=== PATIENT | female | born 1950 | race Caucasian/White ===

== ENCOUNTER 2024-06-18 03:50 | Emergency (ER) | payer MEDICARE, SELFPAY ==
[2024-06-18] VITALS (9 sets, daily range): BP systolic 124–160; BP diastolic 61–70; PULSE 80–99; RESP 16; TEMP 36.4; O2SAT 93–98; BMI 26.6
--- NOTE | 2024-06-18 04:00 | XRR_ITS ---
PROCEDURE INFORMATION: Exam: XR Right Knee Exam date and time: 06/18/2024 4:10 AM Age: 73 years old Clinical indication: Injury or trauma; Fall; Blunt trauma; Knee; Right; Additional info: Fall pain TECHNIQUE: Imaging protocol: Radiologic exam of the right knee. Views: 3 views. COMPARISON: No relevant prior studies available. FINDINGS: Bones/joints: No definite fracture or dislocation is appreciated. There is mild joint space narrowing involving the lateral and patellofemoral compartments. There are small lateral compartment, patellar and tibial spine osteophytes. Bony mineralization is decreased. There is a hyperdense joint effusion suggesting the possibility of a hemarthrosis. Soft tissues: Normal. XR/XR knee RT 3V* [id number] IMPRESSION: 1. No definite fracture identified. However, there does appear to be a hyperdense joint effusion suggesting the presence of a hemarthrosis. This would raise the possibility for an occult fracture. Recommend clinical correlation. Cross-sectional imaging with CT may add additional information. 2. Gnof-dd-[id number] osteoarthritis.
--- NOTE | 2024-06-18 04:06 | W.ED.FALL ---
Documented by User: Augustin Richmond DO 06/18/24 18:43 HPI - Fall General: Chief Complaint: Fall Stated Complaint: FALL Time Seen by Provider: 06/18/24 03:59 History of Present Illness: Patient presents to the ER via EMS from home complains of right knee pain, increased fall starting today. Patient was nauseous on the way here they gave her 4 mg Zofran 5 mg Compazine. Patient lives at home with her . Patient has a doctor's appointment next week with Dr. Bell for spinal stenosis. Patient says she normally walks with assistance or with a cane but now says she cannot even stand up starting today. Related Data Home Medications Medication Instructions Recorded Confirmed polymyxin B sulfate 10,000 1 drp ophthalmic (eye) Q6H 06/18/24 06/18/24 unit-trimethoprim 1 mg/mL eye drops Previous Rx's Medication Instructions Recorded cefdinir 300 mg capsule 300 mg PO BID #14 caps 06/18/24 hydrocodone 5 mg-acetaminophen 325 1 tab PO Q6H PRN pain #20 tabs 06/18/24 mg tablet Allergies Allergy/AdvReac Type Severity Reaction Status Date / Time No Known Allergies Allergy Verified 06/18/24 03:59 Review of Systems General: Reports: 10 or more systems reviewed and unremarkable except in HPI and below Physical Exam Const: COMMON NORMALS: no acute distress, average body habitus, patient oriented x3, no limitations, healthy appearing, alert and well nourished HENMT: COMMON NORMALS: normocephalic, atraumatic, hearing grossly normal bilaterally, external ears normal, Normal external nose present and moist oral mucous membranes HEAD & SCALP: normocephalic and atraumatic NOSE: Normal external nose present EXTERNAL EAR: Yes external ears normal Neck/C-Spine: COMMON NORMALS: full ROM, no lymphadenopathy, supple, no meningeal signs, no JVD and Thyroid normal THYROID: Thyroid normal Chest: COMMONS NORMALS: normal inspection of the chest and normal palpation of entire chest wall Resp: COMMON NORMALS: normal respiratory effort, No retractions, No use of accessory muscles and clear to auscultation bilaterally AUSCULTATION: clear to auscultation bilaterally Cardio: COMMON NORMALS: no JVD, regular rate, regular rhythm, S1 normal heart sound present, S2 normal heart sound present, No gallops present (Cardio), No clicks present (Cardio), No murmurs present (Cardio) and No rub (Cardio) RATE: regular rate RHYTHM: regular rhythm HEART SOUNDS: S1 normal heart sound present and S2 normal heart sound present GI: COMMON NORMALS: Normal to inspection, nondistended, normoactive bowel sounds present, Soft to palpation, non-tender, No hepatosplenomegaly present and no masses PALPATION: Yes Soft to palpation and Yes No hepatosplenomegaly present Extremity: NARRATIVE EXTREMITY EXAM: Right knee minimal tenderness to palpation no obvious crepitus deformity. Mild decreased range of motion secondary to pain Neuro: COMMON NORMALS: patient oriented x3 SENSORIUM/ORIENTATION: Yes alert MENINGEAL SIGNS: Yes no meningeal signs Course Vital Signs: Vital signs: Vital Signs Temperature 97.5 F L 06/18/24 03:56 Pulse Rate 82 06/18/24 12:20 Respiratory Rate 16 06/18/24 03:56 Blood Pressure 124/61 06/18/24 12:20 Pulse Oximetry 98 06/18/24 12:20 Oxygen Delivery Me thod Room Air 06/18/24 08:02 MDM - Fall Medical Decision Making Care transferred over to Dr. Harden at shift change Medical Records I reviewed the patient's medical records. Lab Data I reviewed the patient's lab results. 06/18/24 09:41 06/18/24 09:41 Radiology Impressions Knee X-Ray 06/18/24 04:00 IMPRESSION: 1. No definite fracture identified. However, there does appear to be a hyperdense joint effusion suggesting the presence of a hemarthrosis. This would raise the possibility for an occult fracture. Recommend clinical correlation. Cross-sectional imaging with CT may add additional information. 2. Uopr-dh-bhzwwqlm osteoarthritis. Knee CT 06/18/24 08:26 IMPRESSION: 1. Tiny nondisplaced fracture involving the lateral aspect of the patella extending to the lateral patellar facet. 2. No other visualized fractures. 3. Osteopenia 4. Moderate suprapatellar effusion. Lumbar Spine CT 06/18/24 08:36 IMPRESSION: 1. No acute fractures. 2. Moderate central canal stenosis L3-4 and severe central canal stenosis L4-5 described above. 3. Moderate to severe L3-4 and severe bilateral L4-5 foraminal narrowing. 4. Grade 1 anterolisthesis L4 on L5 with advanced facet arthropathy. 5. Dense cholelithiasis. Laboratory Results WBC 14.16 10^3/uL (3.29-11.43) H 06/18/24 09:41 RBC 4.37 10^6/uL (3.85-5.65) 06/18/24 09:41 Hgb 13.20 g/dL (11.27-16.99) 06/18/24 09:41 Hct 40.7 % (36-47) 06/18/24 09:41 MCV 93.1 fl (85-98) 06/18/24 09:41 MCH 30.2 pg (27-33) 06/18/24 09:41 MCHC 32.4 g/dL (30-55) 06/18/24 09:41 RDW 13.2 % (12.1-15.1) 06/18/24 09:41 Plt Count 333 10^3/cmm (157-399) 06/18/24 09:41 MPV 8.5 fL (7.4-10.4) 06/18/24 09:41 Neut % (Auto) 79.5 % 06/18/24 09:41 Lymph % (Auto) 12.5 % 06/18/24 09:41 Trimble % (Auto) 7.3 % 06/18/24 09:41 Eos % (Auto) 0.1 % 06/18/24 09:41 Baso % (Auto) 0.2 % 06/18/24 09:41 Neut # (Auto) 11.26 10^3/uL (1.8-7.7) H 06/18/24 09:41 Lymph # (Auto) 1.8 10^3/uL (0.8-4.8) 06/18/24 09:41 Trimble # (Auto) 1.0 10^3/uL (0.2-0.9) H 06/18/24 09:41 Eos # (Auto) 0.0 10^3/uL (0.0-0.8) 06/18/24 09:41 Baso # (Auto) 0.0 10^3/uL (0.0-0.1) 06/18/24 09:41 Nucleated RBC % (auto) 0 % 06/18/24 09:41 Nucleated RBCs # 0.0 /100WBC 06/18/24 09:41 Sodium 135 mmol/L (136-145) L 06/18/24 09:41 Potassium 3.7 mmol/L (3.5-5.1) 06/18/24 09:41 Chloride 99 mmol/L (98-107) 06/18/24 09:41 Carbon Dioxide 25 mmol/L (22-29) 06/18/24 09:41 Anion Gap 14.7 (5-19) 06/18/24 09:41 BUN 7 mg/dL (8-23) L 06/18/24 09:41 Creatinine 0.4 mg/dL (0.5-0.9) L 06/18/24 09:41 GFR Calculation Not Reportable 06/18/24 09:41 Glucose 97 mg/dL (65-115) 06/18/24 09:41 Calculated Osmolality 278 mOsm/kg (285-295) L 06/18/24 09:41 Calcium 8.9 mg/dL (8.5-10.5) 06/18/24 09:41 Total Bilirubin 0.7 mg/dL (0.15-1.2) 06/18/24 09:41 AST 20 U/L (0-32) 06/18/24 09:41 ALT 12 U/L (0-33) 06/18/24 09:41 Alkaline Phosphatase 63 U/L (35-105) 06/18/24 09:41 Total Protein 6.8 g/dL (6.6-8.7) 06/18/24 09:41 Albumin 4.0 g/dL (3.5-5.2) 06/18/24 09:41 Globulin 2.8 g/dL (1.3-4.6) 06/18/24 09:41 Urine Color Spalding (Yellow) A 06/18/24 10:08 Urine Appearance Clear (CLEAR) 06/18/24 10:08 Urine pH 5.5 (5-7) 06/18/24 10:08 Ur Specific Driscoll 1.014 (1.005-1.030) 06/18/24 10:08 Urine Protein Negative (Negative) 06/18/24 10:08 Urine Glucose (UA) Negative (Normal) 06/18/24 10:08 Urine Ketones 3+ (Negative) H 06/18/24 10:08 Urine Blood Negative (Negative) 06/18/24 10:08 Urine Nitrate Negative (Negative) 06/18/24 10:08 Urine Bilirubin Negative (Negative) 06/18/24 10:08 Urine Urobilinogen 1.0 mg/dL (Negative) 06/18/24 10:08 Ur Leukocyte Esterase 2+ (Negative) A 06/18/24 10:08 Urine RBC 3-5 /hpf (0-2) 06/18/24 10:08 Urine WBC 21-50 /hpf (0-5) H 06/18/24 10:08 Ur Squamous Epith Cells 0-5 /hpf (0-5) 06/18/24 10:08 Amorphous Sediment Not Reportable 06/18/24 10:08 Urine Bacteria None seen /hpf (NONE) 06/18/24 10:08 Hyaline Casts 0.40 /lpf 06/18/24 10:08 All radiology interpretation(s) finalized by discharge Discharge Plan Discharge Patient Disposition: Home Clinical Impression: Lumbar radiculopathy, Cystitis, Patella fracture Condition: Stable Prescriptions: New cefdinir 300 mg capsule 300 mg PO BID Qty: 14 0RF hydrocodone-acetaminophen 5-325 mg tablet 1 tab PO Q6H PRN (Reason: pain) Qty: 20 0RF No Action polymyxin B sulf-trimethoprim 10,000 unit- 1 mg/mL drops 1 drp ophthalmic (eye) Q6H Discharge Orders: Discharge ED (Routine); Ordered 06/18/24 Ordered By: Kristian Harden Other Ambulatory Orders: DME: Walker (Order) Location: None Selected Ordered By: Kristian Harden Referrals: Caprice Monreal FNP-C [Primary Care Provider] - Discharge Diet: Usual diet Discharge Activity: Resume usual activity Patient Instructions: Opioid Safety, Pain Management Activity Restrictions/Additional Instructions: Thank you for choosing [facility] [place] for your healthcare needs today. It is very important that you follow up as instructed or that you return to the Emergency Department should you have concerns or if your condition changes or worsens in any way. You are seen in the emergency room after a fall. You do have a small avulsion fracture that is nondisplaced on the right patella recommend that you wear a knee immobilizer for this she can be partial weightbearing with a walker. On exam your function your lower extremities was normal. There is no sign of cauda equina syndrome. There is sign of chronic back issues on your CT of your lumbar spine. I discussed your CT with the radiologist as well as Dr. Bell who is on-call for orthopedic spine surgery. Dr. Bell recommended outpatient MRI and follow-up with him in the office. Case management is working on scheduling an outpatient MRI in the morning. Dr. Bell will see you the following day. Sign Out Sign Out Data: Patient Sign Out occurred on 06/18/24 at 06:42. Patient's care was discussed, and care was transferred from Augustin Richmond DO to Kristian Harden DO. Coding Level of Care Code ED Investor Relations Analyst for [employer] Documented by User: Kristian Harden DO 06/20/24 09:29 HPI - Fall General: Chief Complaint: Fall Stated Complaint: FALL Time Seen by Provider: 06/18/24 03:59 Related Data Home Medications Medication Instructions Recorded Confirmed polymyxin B sulfate 10,000 1 drp ophthalmic (eye) Q6H 06/18/24 06/18/24 unit-trimethoprim 1 mg/mL eye drops Previous Rx's Medication Instructions Recorded cefdinir 300 mg capsule 300 mg PO BID #14 caps 06/18/24 hydrocodone 5 mg-acetaminophen 325 1 tab PO Q6H PRN pain #20 tabs 06/18/24 mg tablet Allergies Allergy/AdvReac Type Severity Reaction Status Date / Time No Known Allergies Allergy Verified 06/18/24 03:59 Course Vital Signs: Vital signs: Vital Signs Temperature 97.5 F L 06/18/24 03:56 Pulse Rate 82 06/18/24 12:20 Respiratory Rate 16 06/18/24 03:56 Blood Pressure 124/61 06/18/24 12:20 Pulse Oximetry 98 06/18/24 12:20 Oxygen Delivery Me thod Room Air 06/18/24 08:02 MDM - Fall Medical Decision Making Care transferred over to Dr. Harden at shift change Care assumed at change of shift. Patient does have a small avulsion fracture patella this is fairly minor its nondisplaced. It will cause some discomfort and I think is causing the swelling discomfort she is having at the level of her knee. She also complaining of difficulty with leg pain. 20 years ago she had an MRI and was advised she had some spinal canal stenosis and foraminal stenosis she has not had any recent advanced imaging she has an appointment coming up with Dr. Bell lumbar spine CT done reviewed with radiology also discussed with Dr. Bell. He does not feel and neither did radiology that an emergent MRI was required at this time. Patient is having no fecal incontinence and no urinary retention. We were able to ambulate her successfully with a walker. We are making arrangements for case management for a MRI in the morning first thing and then follow-up with Dr. Bell the following day. Incidental finding of a cystitis. She has a mild elevation of her white count but no signs of a pyelonephritis we will start her on cefdinir for now. She has not been running a fever either. Lab Data 06/18/24 09:41 06/18/24 09:41 Radiology Impressions Knee X-Ray 06/18/24 04:00 IMPRESSION: 1. No definite fracture identified. However, there does appear to be a hyperdense joint effusion suggesting the presence of a hemarthrosis. This would raise the possibility for an occult fracture. Recommend clinical correlation. Cross-sectional imaging with CT may add additional information. 2. Seac-oo-okimvvhf osteoarthritis. Knee CT 06/18/24 08:26 IMPRESSION: 1. Tiny nondisplaced fracture involving the lateral aspect of the patella extending to the lateral patellar facet. 2. No other visualized fractures. 3. Osteopenia 4. Moderate suprapatellar effusion. Lumbar Spine CT 06/18/24 08:36 IMPRESSION: 1. No acute fractures. 2. Moderate central canal stenosis L3-4 and severe central canal stenosis L4-5 described above. 3. Moderate to severe L3-4 and severe bilateral L4-5 foraminal narrowing. 4. Grade 1 anterolisthesis L4 on L5 with advanced facet arthropathy. 5. Dense cholelithiasis. Laboratory Results WBC 14.16 10^3/uL (3.29-11.43) H 06/18/24 09:41 RBC 4.37 10^6/uL (3.85-5.65) 06/18/24 09:41 Hgb 13.20 g/dL (11.27-16.99) 06/18/24 09:41 Hct 40.7 % (36-47) 06/18/24 09:41 MCV 93.1 fl (85-98) 06/18/24 09:41 MCH 30.2 pg (27-33) 06/18/24 09:41 MCHC 32.4 g/dL (30-55) 06/18/24 09:41 RDW 13.2 % (12.1-15.1) 06/18/24 09:41 Plt Count 333 10^3/cmm (157-399) 06/18/24 09:41 MPV 8.5 fL (7.4-10.4) 06/18/24 09:41 Neut % (Auto) 79.5 % 06/18/24 09:41 Lymph % (Auto) 12.5 % 06/18/24 09:41 Trimble % (Auto) 7.3 % 06/18/24 09:41 Eos % (Auto) 0.1 % 06/18/24 09:41 Baso % (Auto) 0.2 % 06/18/24 09:41 Neut # (Auto) 11.26 10^3/uL (1.8-7.7) H 06/18/24 09:41 Lymph # (Auto) 1.8 10^3/uL (0.8-4.8) 06/18/24 09:41 Trimble # (Auto) 1.0 10^3/uL (0.2-0.9) H 06/18/24 09:41 Eos # (Auto) 0.0 10^3/uL (0.0-0.8) 06/18/24 09:41 Baso # (Auto) 0.0 10^3/uL (0.0-0.1) 06/18/24 09:41 Nucleated RBC % (auto) 0 % 06/18/24 09:41 Nucleated RBCs # 0.0 /100WBC 06/18/24 09:41 Sodium 135 mmol/L (136-145) L 06/18/24 09:41 Potassium 3.7 mmol/L (3.5-5.1) 06/18/24 09:41 Chloride 99 mmol/L (98-107) 06/18/24 09:41 Carbon Dioxide 25 mmol/L (22-29) 06/18/24 09:41 Anion Gap 14.7 (5-19) 06/18/24 09:41 BUN 7 mg/dL (8-23) L 06/18/24 09:41 Creatinine 0.4 mg/dL (0.5-0.9) L 06/18/24 09:41 GFR Calculation Not Reportable 06/18/24 09:41 Glucose 97 mg/dL (65-115) 06/18/24 09:41 Calculated Osmolality 278 mOsm/kg (285-295) L 06/18/24 09:41 Calcium 8.9 mg/dL (8.5-10.5) 06/18/24 09:41 Total Bilirubin 0.7 mg/dL (0.15-1.2) 06/18/24 09:41 AST 20 U/L (0-32) 06/18/24 09:41 ALT 12 U/L (0-33) 06/18/24 09:41 Alkaline Phosphatase 63 U/L (35-105) 06/18/24 09:41 Total Protein 6.8 g/dL (6.6-8.7) 06/18/24 09:41 Albumin 4.0 g/dL (3.5-5.2) 06/18/24 09:41 Globulin 2.8 g/dL (1.3-4.6) 06/18/24 09:41 Urine Color Spalding (Yellow) A 06/18/24 10:08 Urine Appearance Clear (CLEAR) 06/18/24 10:08 Urine pH 5.5 (5-7) 06/18/24 10:08 Ur Specific Driscoll 1.014 (1.005-1.030) 06/18/24 10:08 Urine Protein Negative (Negative) 06/18/24 10:08 Urine Glucose (UA) Negative (Normal) 06/18/24 10:08 Urine Ketones 3+ (Negative) H 06/18/24 10:08 Urine Blood Negative (Negative) 06/18/24 10:08 Urine Nitrate Negative (Negative) 06/18/24 10:08 Urine Bilirubin Negative (Negative) 06/18/24 10:08 Urine Urobilinogen 1.0 mg/dL (Negative) 06/18/24 10:08 Ur Leukocyte Esterase 2+ (Negative) A 06/18/24 10:08 Urine RBC 3-5 /hpf (0-2) 06/18/24 10:08 Urine WBC 21-50 /hpf (0-5) H 06/18/24 10:08 Ur Squamous Epith Cells 0-5 /hpf (0-5) 06/18/24 10:08 Amorphous Sediment Not Reportable 06/18/24 10:08 Urine Bacteria None seen /hpf (NONE) 06/18/24 10:08 Hyaline Casts 0.40 /lpf 06/18/24 10:08 Discharge Plan Discharge Patient Disposition: Home Clinical Impression: Lumbar radiculopathy, Cystitis, Patella fracture Condition: Stable Prescriptions: New cefdinir 300 mg capsule 300 mg PO BID Qty: 14 0RF hydrocodone-acetaminophen 5-325 mg tablet 1 tab PO Q6H PRN (Reason: pain) Qty: 20 0RF No Action polymyxin B sulf-trimethoprim 10,000 unit- 1 mg/mL drops 1 drp ophthalmic (eye) Q6H Discharge Orders: Discharge ED (Routine); Ordered 06/18/24 Ordered By: Kristian Harden Other Ambulatory Orders: DME: Walker (Order) Location: None Selected Ordered By: Kristian Harden Referrals: Caprice Monreal FNP-C [Primary Care Provider] - Discharge Diet: Usual diet Discharge Activity: Resume usual activity Patient Instructions: Opioid Safety, Pain Management Activity Restrictions/Additional Instructions: Thank you for choosing [facility] [place] for your healthcare needs today. It is very important that you follow up as instructed or that you return to the Emergency Department should you have concerns or if your condition changes or worsens in any way. You are seen in the emergency room after a fall. You do have a small avulsion fracture that is nondisplaced on the right patella recommend that you wear a knee immobilizer for this she can be partial weightbearing with a walker. On exam your function your lower extremities was normal. There is no sign of cauda equina syndrome. There is sign of chronic back issues on your CT of your lumbar spine. I discussed your CT with the radiologist as well as Dr. Bell who is on-call for orthopedic spine surgery. Dr. Bell recommended outpatient MRI and follow-up with him in the office. Case management is working on scheduling an outpatient MRI in the morning. Dr. Bell will see you the following day. Sign Out Sign Out Data: Patient Sign Out occurred on 06/18/24 at 06:42. Patient's care was discussed, and care was transferred from Augustin Richmond DO to Kristian Harden DO. Coding Level of Care Code ED Investor Relations Analyst for [employer]
--- NOTE | 2024-06-18 07:22 | PC.PHAR ---
Pt takes no maintenance medications. Current therapy of eye drop Polymyxin B/Trimethoprim filled 06/11/24 for 7 to 10 days
--- NOTE | 2024-06-18 08:26 | CT_ITS ---
WS: [id number] Noncontrast CT RIGHT knee TECHNIQUE: Noncontrast CT RIGHT knee with coronal and sagittal reformatted images. CLINICAL INFORMATION: r knee pain , unable to stand, trauma DLP: 337.[address] scans at [facility] use at least one of these dose optimization techniques: automated e xposure control; mA and/or kV adjustment per patient size (includes targeted exams where dose is matc hed to clinical indication); or iterative reconstruction. FINDINGS: Osteopenia. Osteopenia somewhat limits sensitivity for fracture detection. Moderate tricompartmental arthritis. Vascular calcification. Hypertrophic changes along the joint line. Moderate suprapatellar effusion. Soft tissue edema. Tiny nondisplaced hairline fracture involving the lateral aspect of the patella. Femoral condyles are normal in appearance. Tibial plateau appears intact. Normal fibula head. CT/CT knee RT wo con* [id number] IMPRESSION: 1. Tiny nondisplaced fracture involving the lateral aspect of the patella exte nding to the lateral patellar facet. 2. No other visualized fractures. 3. Osteopenia 4. Moderate suprapatellar effusion.
--- NOTE | 2024-06-18 08:36 | CT_ITS ---
WS: [id number] CT LUMBAR SPINE TECHNIQUE: Noncontrast CT of the lumbar spine with coronal and sagittal reformatted images. CLINICAL INFORMATION: back pain/fall COMPARISON: None. DLP: 815.[address] scans at [facility] use at least one of these dose optimization techniques: automated e xposure control; mA and/or kV adjustment per patient size (includes targeted exams where dose is matc hed to clinical indication); or iterative reconstruction. FINDINGS: Mild lumbar curve. Grade 1 anterolisthesis L4 on L5. Disc space narrowing worse at L2-L3 and L3-L4. L liat bases are well aerated. Dense cholelithiasis. Adrenal glands are normal. Splenic artery calcifica tions. L1-L2: Mild disc bulging. Small central protrusion. Mild central canal stenosis. Mild foraminal narro wing. Mild facet arthropathy. L2-L3: Moderate central canal stenosis with a shallow central protrusion. Moderate facet arthropathy. Moderate bilateral foraminal narrowing. L3-L4: Severe central canal stenosis due to disc bulge and facet arthropathy with ligamentum flavum h ypertrophy. Moderate to severe bilateral foraminal narrowing. L4-L5: Grade 1 anterolisthesis. Severe central canal stenosis. Advanced facet arthropathy with ligame ntum flavum hypertrophy. Severe bilateral foraminal narrowing. L5-S1: Mild disc bulging. Moderate RIGHT and mild LEFT foraminal narrowing. Moderate to advanced face t arthropathy. CT/CT lumbar spine wo con* [id number] IMPRESSION: 1. No acute fractures. 2. Moderate central canal stenosis L3-4 and severe central canal stenosis L4-5 described above. 3. Moderate to severe L3-4 and severe bilateral L4-5 foraminal narrowing. 4. Grade 1 anterolisthesis L4 on L5 with advanced facet arthropathy. 5. Dense cholelithiasis.
[2024-06-18 09:52] LABS: Basophils % 0.2 %; Eosinophils % 0.1 %; Hematocrit 40.7 % (36-47); Lymphocytes # 1.8 10^3/uL (0.8-4.8); Lymphocytes % 12.5 %; Mean Corpuscular HGB Conc 32.4 g/dL (30-55); Mean Corpuscular Hemoglobin 30.2 pg (27-33); Mean Corpuscular Volume 93.1 fl (85-98); Mean Platelet Volume 8.5 fL (7.4-10.4); Monocytes % 7.3 %; Neutrophils # 11.26 10^3/uL (1.8-7.7); Neutrophils % 79.5 %; Nucleated Red Blood Cells % 0 %; Platelet Count 333 10^3/cmm (157-399); Red Blood Count 4.37 10^6/uL (3.85-5.65); Red Cell Distribution Width 13.2 % (12.1-15.1); White Blood Count 14.16 10^3/uL (3.29-11.43)
[2024-06-18 10:15] LABS: Alanine Aminotransferase 12 U/L (0-33); Alkaline Phosphatase 63 U/L (35-105); Anion Gap 14.7 (5-19); Aspartate Amino Transferase 20 U/L (0-32); Blood Urea Nitrogen 7 mg/dL (8-23); Calcium 8.9 mg/dL (8.5-10.5); Carbon Dioxide 25 mmol/L (22-29); Chloride 99 mmol/L (98-107); Creatinine Clr Calc Pharmacy 66.0387; Globulin 2.8 g/dL (1.3-4.6); Glucose 97 mg/dL (65-115); Osmolality Calculated 278 mOsm/kg (285-295); Potassium 3.7 mmol/L (3.5-5.1); Sodium 135 mmol/L (136-145); Total Bilirubin 0.7 mg/dL (0.15-1.2); Total Protein 6.8 g/dL (6.6-8.7)
[2024-06-18] MEDS: ondansetron 2 mg/ML SDV 2 mL 4 MG IVP (10:23)
[2024-06-18] MEDS: dexamethasone 10 mg/mL INJ IM (10:24)
[2024-06-18] MEDS: morphine 4 mg/mL SDV 1 mL IVP (10:26)
[2024-06-18] MEDS: ketorolac 30 mg/mL INJ IVP (10:26)
[2024-06-18 10:37] LABS: Bacteria Urine None Seen /hpf; Squamous Epithelial Cell Urine 0-5 /hpf (0-5); WBC Urine 21-50 /hpf (0-5)
[2024-06-18 10:41] LABS: Add Urine Microscopic? YES; Bilirubin Urine Negative (Negative); Blood Urine Negative (Negative); Glucose Urine UA Negative (Normal); Ketones Urine 3+ (Negative); Leukocyte Esterase Urine 2+ (Negative); Nitrate Urine Negative (Negative); Protein Urine Negative (Negative); Specific Gravity, Urine 1.014 (1.005-1.030); Urine Appearance Clear (CLEAR); pH Urine 5.5 (5-7)
[2024-06-18 10:46] LABS: Add Urine Culture? Yes; Urine Color Orange (Yellow)
[2024-06-18] MEDS: cefTRIAXone 1,000 mg SDV 1000 MG IVP (11:14)
== END 2024-06-18 12:22 | disposition home or self-care (01) ==
PROVIDERS: Emergency Provider Family Medicine; PCP Nurse Practitioner
DX: M54.16 Radiculopathy, lumbar region (principal); N30.90 Cystitis, unspecified without hematuria; S82.091A Other fracture of right patella, initial encounter for closed fracture; W19.XXXA Unspecified fall, initial encounter
CPT/HCPCS: 36415; 51798; 72131; 73562; 73700; 80053; 81001; 85025; 87086; 96374; 96375; 99285; J0696; J1100; J1885; J2270; J2405

== ENCOUNTER 2024-06-20 12:56 | Inpatient (IN) | payer MEDICARE, SELFPAY ==
[2024-06-20] VITALS (9 sets, daily range): BP systolic 134–172; BP diastolic 58–88; PULSE 69–90; RESP 16–17; TEMP 36.5–36.6; O2SAT 95–99; BMI 26.6
--- NOTE | 2024-06-20 13:12 | ED_ITS ---
HPI - Weakness 2 General: Chief complaint: Weakness Stated complaint: right sided weakness Time Seen by Provider: 06/20/24 12:57 History of Present Illness: 73-year-old female presents emergency ro om complaint of pain from S1-S5 as well as her coccyx . She complains of incontinence of bladder and constipation as well. She was seen [address] of her lumbar spine was done there was some lumbar stenosis but Dr. Bonilla and Dr. Bell who reviewed it did not feel it required an emergent MRI and suggested outpatient. We arrange for an MRI the following morning as well as consultation with Dr. Bell today. She has not had any urinary retention or fecal incontinence. When she is evaluated previously she had no urinary retention on bladder scan she had no fecal incontinence and she had functional lower extremities with normal sensation. She was also able to ambulate with a walker assessed at the bedside by nursing staff. She has not pursued her outpatient follow-up as scheduled. Associated symptoms: Denies chest pain, chills, dysuria or fever(s) Review of Systems 2 Const: Denies: fever(s) or chills Card: Denies: chest pain Resp: Denies: dyspnea GI: Denies: abdominal pain : Denies: dysuria, urinary frequency or urinary urgency Musc: Denies: neck pain or back pain Skin/Breast: Denies: rash PFSH ED 2 PFSH: Medical History (Updated 06/22/24 @ 07:05 by Kristian Harden DO) History of congenital dysplasia of hip Cystitis Lumbar radiculopathy Surgical History (Updated 06/20/24 @ 18:11 by Santo Cabral MD) History of bone graft Family History Mother Diabetes mellitus, type 2 Social History (Updated 06/20/24 @ 18:12 by Santo Cabral MD) Smoking and tobacco/nicotine status: never used tobacco/nicotine Alcohol intake: never Substance/Drug Use: never Physical Exam 2 Const: GENERAL APPEARANCE: cooperative ORIENTATION/CONSCIOUSNESS: Yes awake, Yes oriented to person, Yes oriented to place and Yes oriented to time HENMT: COMMON NORMALS: normocephalic, atraumatic and hearing grossly normal bilaterally HEAD & SCALP: normocephalic and atraumatic Resp: COMMON NORMALS: normal respiratory effort, No retractions, No use of accessory muscles and clear to auscultation bilaterally AUSCULTATION: clear to auscultation bilaterally Cardio: COMMON NORMALS: regular rate, regular rhythm and No murmurs present (Cardio) RATE: regular rate RHYTHM: regular rhythm GI: COMMON NORMALS: Soft to palpation and No hepatosplenomegaly present A USCULTATION: Yes normoactive bowel sounds PALPATION: Yes Soft to palpation, No Tenderness to palpation present (GI), No Guarding due to palpation present (GI) and Yes No hepatosplenomegaly present Extremity: COMMON NORMALS: normal to inspection, capillary refill normal, no clubbing, cyanosis or edema, no calf tenderness and no pedal edema OTHER: Examination of the lower extremities patient dorsum plantarflex strength 5 out of 5. Sensation to sharp touch equal bilaterally. She is able to flex independently at the hip. Examination of the upper extremities patient complains of weakness in her right arm but she demonstrates movement and ability to flex and extend her fingers in her hand she lifts both arms equally. She has normal sensation in her hands. Neuro: SENSORIUM/ORIENTATION: Yes oriented to person, Yes oriented to place and Yes oriented to time Skin: COMMON NORMALS: no rashes or lesions noted GENERAL SKIN EXAM: no rashes or lesions noted Course 2 Vital Signs: Vital signs: Vital Signs Temperature 98.3 F 06/22/24 04:00 Pulse Rate 75 06/22/24 05:20 Respiratory Rate 17 06/22/24 04:00 Blood Pressure 121/61 06/22/24 04:00 Pulse Oximetry 94 06/22/24 04:00 Oxygen Delivery Me thod Room Air 06/22/24 04:00 MDM - Weakness Medical Decision Making Patient continues to complain primarily of low back pain. We did do a CT of her lumbar spine 2 days ago, reviewed with Dr. Bonilla and Dr. tomlinson and they recommended follow-up outpatient MRI of the lumbar spine which she would arrange for the following day and a appointment with Dr. Bell today. She complained of some weakness in her right arm but demonstrated normal sensation and strength. CT of her neck was done did not show Any acute findings. Given her persistent pain and difficulty with ambulation will admit the patient discussed with hospitalist will consult Dr. Santillan who is seeing the patient currently in the emergency room. At time of admission patient is able to move all extremities has no deficits. No definitive findings of cauda equina or cervical stenosis. Patient still has cystitis as well will continue to cover with Rocephin. Medical Records I reviewed the patient's medical records. Lab Data I reviewed the patient's lab results. 06/22/24 04:30 06/20/24 13:12 Radiology Impressions Cervical Spine CT 06/20/24 15:30 IMPRESSION: No acute findings. Head CT 06/20/24 18:10 IMPRESSION: No acute intracranial abnormality. Cervical Spine MRI 06/21/24 10:32 IMPRESSION: 1. Multilevel cervical spondylosis most pronounced at C5-C6 and C6-C7 with mild spinal stenosis and moderate to severe bilateral neural foraminal narrowing as detailed above. 2. Slight grade 1 retrolisthesis at C5-C6. 3. Focal area in the C2 vertebral body could represent an intraosseous hemangioma. A follow-up MRI cervical spine without and with contrast could be considered in 3-6 months to document stability. Head MRI 06/21/24 10:32 IMPRESSION: 1. Focal area of acute ischemia in the left frontal lobe involving the white matter/edge radiata. 2. Moderate white matter changes compatible with chronic small vessel ischemic disease. ADDENDUM: 06/21/24 1834 THIS REPORT CONTAINS FINDINGS THAT MAY BE CRITICAL TO PATIENT CARE. The findings were verbally communicated via telephone conference with SANTO MCGREGOR at 6:32 PM CDT on 06/21/2024. The findings were acknowledged and understood. Lumbar Spine MRI 06/21/24 18:03 IMPRESSION: 1. Advanced multilevel lumbar spondylosis as detailed above. 2. Severe spinal canal stenosis at L3-L4 and L4-L5 with areas of [id number] spinal stenosis at additional levels as detailed above. 3. Severe bilateral neural foraminal narrowing throughout the mid to lower lumbar spine. 4. Slight grade 1 retrolisthesis at L1-L2 and L2-L3. Grade 1 anterolisthesis at L4-L5. Laboratory Results WBC 9.83 10^3/uL (3.29-11.43) 06/20/24 13:12 RBC 4.66 10^6/uL (3.85-5.65) 06/20/24 13:12 Hgb 13.90 g/dL (11.27-16.99) 06/20/24 13:12 Hct 42.3 % (36-47) 06/20/24 13:12 MCV 90.8 fl (85-98) 06/20/24 13:12 MCH 29.8 pg (27-33) 06/20/24 13:12 MCHC 32.9 g/dL (30-55) 06/20/24 13:12 RDW 13.3 % (12.1-15.1) 06/20/24 13:12 Plt Count 341 10^3/cmm (157-399) 06/20/24 13:12 MPV 8.5 fL (7.4-10.4) 06/20/24 13:12 Neut % (Auto) 71.6 % 06/20/24 13:12 Lymph % (Auto) 17.6 % 06/20/24 13:12 Wilson % (Auto) 9.8 % 06/20/24 13:12 Eos % (Auto) 0.3 % 06/20/24 13:12 Baso % (Auto) 0.4 % 06/20/24 13:12 Neut # (Auto) 7.04 10^3/uL (1.8-7.7) 06/20/24 13:12 Lymph # (Auto) 1.7 10^3/uL (0.8-4.8) 06/20/24 13:12 Wilson # (Auto) 1.0 10^3/uL (0.2-0.9) H 06/20/24 13:12 Eos # (Auto) 0.0 10^3/uL (0.0-0.8) 06/20/24 13:12 Baso # (Auto) 0.0 10^3/uL (0.0-0.1) 06/20/24 13:12 Nucleated RBC % (auto) 0 % 06/20/24 13:12 Nucleated RBCs # 0.0 /100WBC 06/20/24 13:12 ESR 45 mm/hr (0-15) H 06/20/24 13:12 Sodium 137 mmol/L (136-145) 06/20/24 13:12 Potassium 3.7 mmol/L (3.5-5.1) 06/20/24 13:12 Chloride 98 mmol/L (98-107) 06/20/24 13:12 Carbon Dioxide 27 mmol/L (22-29) 06/20/24 13:12 Anion Gap 15.7 (5-19) 06/20/24 13:12 BUN 10 mg/dL (8-23) 06/20/24 13:12 Creatinine 0.5 mg/dL (0.5-0.9) 06/20/24 13:12 GFR Calculation Not Reportable 06/20/24 13:12 Glucose 98 mg/dL (65-115) 06/20/24 13:12 Calculated Osmolality 283 mOsm/kg (285-295) L 06/20/24 13:12 Calcium 9.5 mg/dL (8.5-10.5) 06/20/24 13:12 Total Bilirubin 0.7 mg/dL (0.15-1.2) 06/20/24 13:12 AST 20 U/L (0-32) 06/20/24 13:12 ALT 16 U/L (0-33) 06/20/24 13:12 Alkaline Phosphatase 65 U/L (35-105) 06/20/24 13:12 C-Reactive Protein 23.3 mg/L (0.0-4.9) H 06/20/24 13:12 Total Protein 7.1 g/dL (6.6-8.7) 06/20/24 13:12 Albumin 4.1 g/dL (3.5-5.2) 06/20/24 13:12 Globulin 3.0 g/dL (1.3-4.6) 06/20/24 13:12 Procalcitonin 0.10 ng/mL (0-0.5) 06/20/24 13:12 TSH 3.08 uIU/mL (0.27-4.20) 06/20/24 13:12 All radiology interpretation(s) finalized by discharge Discharge Plan Discharge Patient Disposition: Admitted As Inpatient Admit Provider: Santo Cabral Clinical Impression: Lumbar radiculopathy, Cystitis, Patella fracture, Lumbar stenosis with neurogenic claudication Condition: Stable Coding Level of Care Code ED Business Control Manager for Chg Fwd Related Data Home Medications Medication Instructions Recorded Confirmed polymyxin B sulfate 10,000 1 drp ophthalmic (eye) Q6H 06/18/24 06/20/24 unit-trimethoprim 1 mg/mL eye drops Previous Rx's Medication Instructions Recorded cefdinir 300 mg capsule 300 mg PO BID #14 caps 06/18/24 hydrocodone 5 mg-acetaminophen 325 1 tab PO Q6H PRN pain #20 tabs 06/18/24 mg tablet Allergies Allergy/AdvReac Type Severity Reaction Status Date / Time No Known Allergies Allergy Verified 06/18/24 03:59
[2024-06-20 13:20] LABS: Basophils % 0.4 %; Eosinophils % 0.3 %; Hematocrit 42.3 % (36-47); Lymphocytes # 1.7 10^3/uL (0.8-4.8); Lymphocytes % 17.6 %; Mean Corpuscular HGB Conc 32.9 g/dL (30-55); Mean Corpuscular Hemoglobin 29.8 pg (27-33); Mean Corpuscular Volume 90.8 fl (85-98); Mean Platelet Volume 8.5 fL (7.4-10.4); Monocytes % 9.8 %; Neutrophils # 7.04 10^3/uL (1.8-7.7); Neutrophils % 71.6 %; Nucleated Red Blood Cells % 0 %; Platelet Count 341 10^3/cmm (157-399); Red Blood Count 4.66 10^6/uL (3.85-5.65); Red Cell Distribution Width 13.3 % (12.1-15.1); White Blood Count 9.83 10^3/uL (3.29-11.43)
[2024-06-20 13:37] LABS: Alanine Aminotransferase 16 U/L (0-33); Albumin Level 4.1 g/dL (3.5-5.2); Alkaline Phosphatase 65 U/L (35-105); Anion Gap 15.7 (5-19); Aspartate Amino Transferase 20 U/L (0-32); Blood Urea Nitrogen 10 mg/dL (8-23); Calcium 9.5 mg/dL (8.5-10.5); Carbon Dioxide 27 mmol/L (22-29); Chloride 98 mmol/L (98-107); Creatinine Clr Calc Pharmacy 66.0387; Glucose 98 mg/dL (65-115); Osmolality Calculated 283 mOsm/kg (285-295); Potassium 3.7 mmol/L (3.5-5.1); Sodium 137 mmol/L (136-145); Total Bilirubin 0.7 mg/dL (0.15-1.2); Total Protein 7.1 g/dL (6.6-8.7)
--- NOTE | 2024-06-20 15:30 | CTR_ITS ---
PROCEDURE INFORMATION: Exam: CT Cervical Spine Without Contrast Exam date and time: 06/20/2024 4:09 PM Age: 73 years old Clinical indication: Weakness; Additional info: R arm weakness TECHNIQUE: Imaging protocol: Computed tomography of the cervical spine without contrast. Radiation optimization: All CT scans at this facility use at least one of these dose optimization techniques: automated exposure control; mA and/or kV adjustment per patient size (includes targeted exams where dose is matched to clinical indication); or iterative reconstruction. COMPARISON: No relevant prior studies available. RADIATION DOSE METRICS: Total DLP (mGy-cm): 167.07 FINDINGS: Bones: Generalized osseous demineralization. No acute fracture. Normal alignment. No significant disc bulge or herniation. No severe spinal canal stenosis. Lungs: Lung apices are normal. Soft tissues: Unremarkable. CT/CT cervical spin wo con* [id number] IMPRESSION: No acute findings.
--- NOTE | 2024-06-20 17:44 | P.CONIM_ITS ---
Providers/Reason For Consult 2 Consulting Physician/Specialty*: Hospitalist Reason for Consult*: Back pain and right leg weakness. As well as right arm weakness Primary Care Provider: MERA Headley History of Present Illness History of Present Illness Lupe Harrison is a 73 year old female complaining of right leg weakness. Patient is complaining of incontinence as well however patient does also have a urinary tract infection. Left leg is strong no complaints on the left side. This has been going on for last couple weeks. Patient was post to have an MRI done yesterday and then see me in clinic today however she was unable to get the MRI because they can get transportation there. Review of Systems 2 Const: Denies: fever(s) or chills Card: Denies: chest pain Resp: Denies: dyspnea GI: Denies: abdominal pain : Denies: dysuria, urinary frequency or urinary urgency Musc: Denies: neck pain or back pain Skin/Breast: Denies: rash Medications/Allergies Home Medications Medication Instructions Recorded Confirmed Last Taken Type cefdinir 300 mg capsule 300 mg PO BID #14 caps 06/18/24 06/20/24 06/20/24 Rx hydrocodone 5 mg-acetaminophen 325 1 tab PO Q6H PRN pain #20 tabs 06/18/24 06/20/24 Unknown Rx mg tablet polymyxin B sulfate 10,000 1 drp ophthalmic (eye) Q6H 06/18/24 06/20/24 06/17/24 History unit-trimethoprim 1 mg/mL eye drops Allergies Allergy/AdvReac Type Severity Reaction Status Date / Time No Known Allergies Allergy Verified 06/18/24 03:59 PFSH Acute 2 PFSH: Medical History Cystitis Lumbar radiculopathy Vitals/I&O/Wt Last Vital Signs Temp 97.7 F 06/20/24 12:56 Pulse 89 06/20/24 17:30 Resp 16 06/20/24 12:56 BP 149/85 06/20/24 17:30 Pulse Ox 99 06/20/24 17:30 O2 Del Method Room Air 06/20/24 17:30 Weight last 48 hrs Weight 170 lb Physical Exam 2 Narrative: Right leg has weakness to plantarflexion dorsiflexion sensation is decreased. Left leg is 5 out of 5 strength sensations intact. Patient also complaining of right arm weakness. Decree sensation as well. Left arm is 5-5 strength Data 06/20/24 13:12 06/20/24 13:12 A&P Assessment and plan (1) Lumbar stenosis with neurogenic claudication: Patient CT of cervical spine and lumbar spine reviewed. Patient has CT of the cervical spine has significant disc degeneration at C4-5 C5-6 C6-7 do not see any significant stenosis. CT scan of the lumbar spine shows moderate stenosis throughout as well. At this point would need MRI to further evaluate neurologic deficits. At this point this can either be done while she is in the hospital now she can be scheduled as outpatient for MRIs. If she gets MRIs here will evaluate in, with a treatment plan otherwise will if she gets the MRI scheduled outpatient we can see her in the clinic after she gets the MRIs done outpatient. Sounds like she is having difficulties at home and her is having difficulties taking care of her she likely would need snf placement. Coding Level of Care Code Acute Code for Missy Cuello Diagnoses Lumbar stenosis with neurogenic claudication M48.062
--- NOTE | 2024-06-20 18:04 | P.HP_ITS ---
Providers/Chief Complaint 2 Primary Care Provider: MERA Headley Chief Complaint: right sided weakness History of Present Illness Lupe Harrison is a 73 year old female with a past medical history of 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 Rocha took care of her she had a disc herniation in her lower back and she was admitted she was put on a morphine drip in the morning she was well enough to go home and it never really bothered her since then she denies any trauma she did have a fall on Monday, but no other significant trauma no car accidents. 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 Denies any significant heavy lifting,. 06/16/2024 she had a fall, had right knee pain her right knee did not really bother her, but she did feel unsteady on her feet, she tells me that since her fall, she has had difficulty ambulating difficulty bearing weight, her knee is really not the cause her pain is primarily in the lower back, with right leg weakness she had does have an appointment with Dr. Bell in a week, she does have a small avulsion fracture that is nondisplaced on the right patella, she is in a knee immobilizer for this and is partial weightbearing with a walker however she continued to have pain, she is complaining of urinary incontinence, has constipation , no saddle or perineal anesthesia, the pain is primarily in the lower back, but does not radiate down both lower extremities, no nausea, no vomiting, no fevers, no chills, she is seen by Dr. Bell in the emergency room, she has had a CT of her neck spine as she was complaining of pain moving both arms however during my discussion with her she is moving both upper extremities without any difficulty, no loss of strength no paresthesias reported she denies a history of strokes she tells me that she is here because she she has back pain and right leg weakness, although on examination she has good strength in bilateral lower extremities, no paresthesias reported, also reported incontinence, she is alert oriented x 3, following all commands no facial droop, no slurring her words, Review of Systems 2 Const: Denies: fever(s) or chills Card: Denies: chest pain Resp: Denies: dyspnea GI: Denies: abdominal pain : Reports: urinary incontinence; Denies: flank pain or difficulty voiding Skin/Breast: Denies: rash Medications/Allergies Home Medications Medication Instructions Recorded Confirmed Last Taken Type cefdinir 300 mg capsule 300 mg PO BID #14 caps 06/18/24 06/20/24 06/20/24 Rx hydrocodone 5 mg-acetaminophen 325 1 tab PO Q6H PRN pain #20 tabs 06/18/24 06/20/24 Unknown Rx mg tablet polymyxin B sulfate 10,000 1 drp ophthalmic (eye) Q6H 06/18/24 06/20/24 06/17/24 History unit-trimethoprim 1 mg/mL eye drops Allergies Allergy/AdvReac Type Severity Reaction Status Date / Time No Known Allergies Allergy Verified 06/18/24 03:59 PFSH Acute 2 PFSH: Medical History (Updated 06/20/24 @ 18:11 by Santo Cabral MD) History of congenital dysplasia of hip Cystitis Lumbar radiculopathy Surgical History (Updated 06/20/24 @ 18:11 by Santo Cabral MD) History of bone graft Family History Mother Diabetes mellitus, type 2 Social History (Updated 06/20/24 @ 18:12 by Santo Cabral MD) Smoking and tobacco/nicotine status: never used tobacco/nicotine Alcohol intake: never Substance/Drug Use: never Vitals/I&O/Wt Last Vital Signs Temp 97.7 F 06/20/24 12:56 Pulse 89 06/20/24 17:30 Resp 16 06/20/24 12:56 BP 149/85 06/20/24 17:30 Pulse Ox 99 10/24/24 17:30 O2 Del Method Room Air 06/20/24 17:30 Weight last 48 hrs Weight 77.111 kg Physical Exam 2 Const: COMMON NORMALS: no acute distress and patient oriented x3 HENMT: COMMON NORMALS: normocephalic HEAD & SCALP: normocephalic Neck/C-Spine: COMMON NORMALS: no JVD Resp: COMMON NORMALS: normal respiratory effort, No retractions, No use of accessory muscles and clear to auscultation bilaterally AUSCULTATION: clear to auscultation bilaterally Cardio: COMMON NORMALS: regular rate, regular rhythm, S1 normal heart sound present and S2 normal heart sound present RATE: regular rate RHYTHM: r egular rhythm HEART SOUNDS: S1 normal heart sound present and S2 normal heart sound present GI: COMMON NORMALS: Normal to inspection, nondistended, normoactive bowel sounds present, Soft to palpation and non-tender Extremity: COMMON NORMALS: no calf tenderness and no pedal edema NARRATIVE EXTREMITY EXAM: Right knee examination slightly erythematous, is tender, good palpation, slightly swollen Neuro: COMMON NORMALS: patient oriented x3, CN's II-XII intact bilaterally, moves all extremities, no focal motor deficits and no sensory deficits noted Psych: COMMON NORMALS: mental status grossly normal Data 06/20/24 13:12 06/20/24 13:12 A&P Assessment and plan (1) Lumbar stenosis with neurogenic claudication: (2) Cystitis: Plan ct lumbar spine CT/CT lumbar spine wo con* [id number] IMPRESSION: 1. No acute fractures. 2. Moderate central canal stenosis L3-4 and severe central canal stenosis L4-5 described above. 3. Moderate to severe L3-4 and severe bilateral L4-5 foraminal narrowing. 4. Grade 1 anterolisthesis L4 on L5 with advanced facet arthropathy. 5. Dense cholelithiasis. ? Plan ? Monitor as inpatient ? Morphine for pain control ? Monitor urine output, bladder scan ? Serial examinations ? MRI of the lumbar spine ordered ? Dr. Bell consulted ? Morphine for pain control ? PT OT ? Rocephin for UTI ? Lovenox for DVT prophylaxis, Is full code Attestations 2 Medical Necessity Statement*: Patient requires hospitalization, outpatient with observation, for lumbar stenosis with neurogenic claudication, back pain, right lower extremity weakness Diagnoses Lumbar stenosis with neurogenic claudication M48.062 Cystitis N30.90
--- NOTE | 2024-06-20 18:10 | CTR_ITS ---
PROCEDURE INFORMATION: Exam: CT Head Without Contrast Exam date and time: 06/20/2024 7:53 PM Age: 73 years old Clinical indication: Weakness, extremity; Right; Additional info: Right leg weakness TECHNIQUE: Imaging protocol: Computed tomography of the head without contrast. Radiation optimization: All CT scans at this facility use at least one of these dose optimization techniques: automated exposure control; mA and/or kV adjustment per patient size (includes targeted exams where dose is matched to clinical indication); or iterative reconstruction. COMPARISON: CT cervical spin wo con* [id number] 06/20/2024 4:09 PM RADIATION DOSE METRICS: Total DLP (mGy-cm): 1252.98 FINDINGS: Brain: No hemorrhage. No edema. Advanced diffuse cerebral atrophy and moderate sequela of chronic small vessel ischemic disease. Old lacunar infarcts noted in the basal ganglia. No mass effect. Cerebral ventricles: No ventriculomegaly. Paranasal sinuses: Visualized sinuses are unremarkable. No fluid levels. Mastoid air cells: Visualized mastoid air cells are well aerated. Bones: Unremarkable. No acute fracture. Soft tissues: Unremarkable. CT/CT head wo con* [id number] IMPRESSION: No acute intracranial abnormality.
[2024-06-20] MEDS: cefTRIAXone 1,000 mg SDV 1000 MG IVP (18:31)
[2024-06-20 18:47] LABS: C Reactive Protein 23.3 mg/L (0.0-4.9)
[2024-06-20 19:04] LABS: Erythrocyte Sedimentation Rate 45 mm/hr (0-15)
[2024-06-20 21:48] LABS: Bilirubin Urine Negative (Negative); Blood Urine 2+ (Negative); Glucose Urine UA Negative (Normal); Ketones Urine 1+ (Negative); Leukocyte Esterase Urine Negative (Negative); Nitrate Urine Negative (Negative); Protein Urine Negative (Negative); Specific Gravity, Urine 1.008 (1.005-1.030); Urine Appearance Clear (CLEAR); Urine Color Yellow (Yellow); Urobilinogen Urine 0.2 mg/dL (Negative)
[2024-06-20 21:53] LABS: Add Urine Microscopic? YES; Bacteria Urine None Seen /hpf; Hyaline Casts Urine 0.81 /lpf; Squamous Epithelial Cell Urine 0-5 /hpf (0-5); WBC Urine 0-5 /hpf (0-5)
[2024-06-20] MEDS: enoxaparin 40 mg/0.4 mL Syringe SUBCUT (22:13)
[2024-06-20 22:30] LABS: Thyroid Stimulating Hormone 3.08 uIU/mL (0.27-4.20)
[2024-06-21] VITALS (8 sets, daily range): BP systolic 117–151; BP diastolic 71–78; PULSE 73–92; RESP 15–18; TEMP 36.4–36.9; O2SAT 94–98
--- NOTE | 2024-06-21 10:32 | USCV_ITS ---
Lupe Harrison Age: 73 Gender: F : 1950 Exam Date: 06/21/2024 13:14 Ordering Phys: Santo Cabral MD Technologist: Exam Location: [facility] [place] Indication: cva Risk Factors: Previous Vascular Surgery: Right Brachial BP: / Left Brachial BP: / Right Left Velocity (cm/s) Spectral Plaque Velocity (cm/s) Spectral Plaque Syst/Diast Broadening Syst/Diast Broadening 108.70/18.00 Prox CCA 85.80 / 19.10 103.50/18.00 Mid CCA 74.00 / 17.60 89.30/ 15.40 Distal CCA 66.60 / 11.70 57.80/ 7.30 Prox ICA 59.10 / 14.70 40.90/ 8.30 Mid ICA 69.50 / 16.20 48.30/ 13.60 Distal ICA 42.80 / 11.70 115.20 ECA 93.20 0.60 ICA/CCA 1.00 Antegrade Vertebral Antegrade 38.30/ 9.20 cm/s 51.40/ 8.70 cm/s Tri Subclavian Tri 83.00 80.60 CONCLUSIONS Right ICA stenosis <50%. Mild atheromatous plaque right carotid bulb/ICA. Left ICA stenosis <50%. Mild atheromatous plaque left carotid bulb/ICA. Intimal thickening in the common carotid arteries and internal carotid arteries bilaterally. Normal antegrade Doppler flow noted in the right vertebral artery. Normal antegrade Doppler flow noted in the left vertebral artery. Parially visualized thryoid nodules. Recommend thryoid US Jermain Bonilla MD (Electronically Signed) Final Date: 21 June 2024 16:09 S
--- NOTE | 2024-06-21 10:32 | MRR_ITS ---
PROCEDURE INFORMATION: Exam: MR Head Without Contrast Exam date and time: 06/21/2024 5:23 PM Age: 73 years old Clinical indication: Weakness, facial; Additional info: Right sided weakness TECHNIQUE: Imaging protocol: Magnetic resonance imaging of the head without contrast. COMPARISON: CT head wo con* [id number] 06/20/2024 7:53 PM FINDINGS: Brain: Focal area of diffusion restriction involving the periventricular white matter of the posterior most left frontal lobe along the edge radiata and just medial/caudal to precentral gyrus. Associated intermediate to minimally increased T2 weighted signal. Moderate T2/FLAIR hyperintensities in the periventricular and subcortical white matter are nonspecific but commonly seen with chronic small vessel ischemic changes. No acute intracranial hemorrhage. Cerebral ventricles: Generalized cortical volume loss with prominence of the ventricles and cortical sulci. Bones: Unremarkable. Paranasal sinuses: Normal as visualized. No acute sinusitis. Mastoid air cells: Normal as visualized. No mastoid effusion. Orbital cavities: Bilateral lens replacements. Soft tissues: Unremarkable. MR/MR head wo con* [id number] IMPRESSION: 1. Focal area of acute ischemia in the left frontal lobe involving the white matter/edge radiata. 2. Moderate white matter changes compatible with chronic small vessel ischemic disease.
--- NOTE | 2024-06-21 10:32 | USCV_ITS ---
Lupe Harrison Age: 73 Gender: F : 1950 Exam Date: 06/21/2024 12:58 Ordering Phys: Santo Cabral MD Technologist: Exam [place] [facility] [place]ication: cva BP: 123 / 74 HR: 80 Rhythm: Sinus Technical Quality: Adequate MEASUREMENTS (Male / Female) Normal Values 2D ECHO LV Diastolic Diameter PLAX 4.3 cm 4.2 - 5.9 / 3.9 - 5.3 cm IVS Diastolic Thickness 0.9 cm 0.6 - 1.0 / 0.6 - 0.9 cm IVS Systolic Thickness 1.5 cm LVPW Diastolic Thickness 0.9 cm 0.6 - 1.0 / 0.6 - 0.9 cm LVPW Systolic Thickness 1.5 cm LVOT Diameter 2.0 cm LV Ejection Fraction 2D Teich 83.9 % LV Ejection Fraction MOD 4C 67.8 % LV Ejection Fraction MOD 2C 66.4 % LV Ejection Fraction 2C AL 65.1 % LA Diameter 2.1 cm RA Systolic Volume 4C AL 20.6 ml RA Systolic Volume 4C MOD 20.4 ml Aorta at Sinotubular Diameter 1.9 cm M-MODE LA Ao Ratio MM 1.1 AV Cusp Separation MM 2.5 cm DOPPLER AV Peak Velocity 152.0 cm/s LVOT Peak Velocity 100.0 cm/s AV Area Cont Eq vti 2.1 cm squared AV Area Cont Eq pk 2.0 cm squared MV Area PHT 5.7 cm squared Mitral E to A Ratio 1.0 TR Peak Velocity 151.0 cm/s TR Peak Gradient 9.1 mmHg TV Peak E Velocity 104.0 cm/s Right Atrial Pressure 3.0 mmHg Pulmonary Artery Systolic Pressu 12.1 mmHg PV Peak Velocity 117.0 cm/s FINDINGS Left Ventricle Normal left ventricular size and systolic function, EF 67%.no regional wall motion abnormalities. Right Ventricle The right ventricle is normal in size and function. Right Atrium The right atrium is normal in size. Left Atrium The left atrium is normal in size. Mitral Valve Trace to mild mitral valve regurgitation. Aortic Valve Thickened aortic valve. Tricuspid Valve No gross abnormalities noted Pulmonic Valve Pulmonic valve not well visualized. Pericardium Normal pericardium without effusion. Aorta Normal ascending aorta dimension. IVC Inferior vena cava not visualized. CONCLUSIONS Normal left ventricular size and systolic function, EF 67%.no regional wall motion abnormalities. Trace to mild mitral valve regurgitation. Thickened aortic valve. Normal cardiac chamber sizes. No intracardiac masses There is no pericardial effusion. No similar previous studies are available for comparison Dr Katrina Floyd MD [facility] (Electronically Signed) Final Date: 21 June 2024 19:04 S
--- NOTE | 2024-06-21 10:32 | MRR_ITS ---
PROCEDURE INFORMATION: Exam: MR Cervical Spine Without Contrast Exam date and time: 06/21/2024 5:42 PM Age: 73 years old Clinical indication: Weakness; Neck pain; Additional info: Neck pain, arm weakness TECHNIQUE: Imaging protocol: Magnetic resonance imaging of the cervical spine without contrast. COMPARISON: CT cervical spin wo con* [id number] 06/20/2024 4:09 PM FINDINGS: Bones/joints: Focal area of increased T1 and T2 signal within the C2 vertebral body extending to the base of the dens. No fracture. Slight grade 1 anterolisthesis at C5-C6. Spinal cord: Normal signal. No cord compression. C2-C3: No significant disc bulge or herniation. No severe spinal canal stenosis. No significant neural foraminal narrowing. C3-C4: Small posterior disc osteophyte complex. No severe spinal canal stenosis. No significant neural foraminal narrowing. C4-C5: Posterior disc osteophyte complex and gmur-riaerxm-xosu-right uncovertebral and facet hypertrophy. Effacement of the ventral thecal sac without spinal canal stenosis. Moderate left and mild right neural foraminal narrowing. C5-C6: Posterior disc osteophyte complex and bilateral uncovertebral and facet hypertrophy, left slightly greater than right. Effacement of the ventral thecal sac with mild spinal stenosis. Severe left and moderate right neural foraminal narrowing. C6-C7: Posterior disc osteophyte complex and bilateral uncovertebral and facet hypertrophy. Mild spinal canal stenosis. Moderate to severe bilateral neural foraminal narrowing. C7-T1: No significant disc bulge or herniation. No severe spinal canal stenosis. No significant neural foraminal narrowing. Soft tissues: Unremarkable. Vasculature: Expected flow voids in the vertebral arteries. MR/MR cervical spin wo con* [id number] IMPRESSION: 1. Multilevel cervical spondylosis most pronounced at C5-C6 and C6-C7 with mild spinal stenosis and moderate to severe bilateral neural foraminal narrowing as detailed above. 2. Slight grade 1 retrolisthesis at C5-C6. 3. Focal area in the C2 vertebral body could represent an intraosseous hemangioma. A follow-up MRI cervical spine without and with contrast could be considered in 3-6 months to document stability.
[2024-06-21] MEDS: atorvastatin 40 mg Tablet PO (10:59)
[2024-06-21] MEDS: aspirin 325 mg EC Tablet PO (10:59)
[2024-06-21 11:19] LABS: Troponin(5th) Baseline 66 ng/L (0-10)
--- NOTE | 2024-06-21 11:20 | PC.CHAP ---
Pastoral Care Encounter/Spiritual Assessment Type of Contact [] Declined senior corporate accountant visit [] Patient/Family/Request visit [] Outpatient visit [] Follow-up visit [] Physician referral [] Code/Alert [X] Routine visit [] Staff referral [] Actively dying [] Patient sleeping [] Family support [] [] Out of room [] Palliative care [] [] Receiving care in room [] Pre-surgical visit [] Trauma [] Long length of stay [] ICU visit [] Other: Relational/Emotional Strength [x] Patient feels connected with others/family/visitors/staff [x] Distress [] Loneliness/isolation [] Abandonment Spirituality of Patient [x] Person of Kinza [x] Attends Confucianism of their Kinza [x] Believes in Prayer [x] Reads Bible or Christianity materials [] There are Spiritual issues to be addressed Hem Marker Interventions [x] Prayer [x] Active listening [] Non-anxious presence [x] Spiritual/emotional support [] Crisis/trauma care [] Spiritual counseling [] Bereavement support [] Provided bereavement packet [] Provided Bible/devotional materials [] Provided toy/stuffed animal, coloring book to patient or family member [] Provided Communion [] Anointing/Fiatt [] Salvation [] Completed spiritual assessment [] Other: Impact on Illness or Injury [] Angry [X] Fearful [x] Anxious [] Often cries [] Exhaustion [] Unable to work [] Unable to attend sabianist [] Unable to walk/stand [] Unable to read [] Unable to drive [] Unable to eat/drink [x] Unable to sleep [] Unable to be with family [] Patient intubated [] Other: Summary Uncontrollable watery eyes. Having cat-scan Fearful of results. Family oriented. Time spent with patient 35 Min
--- NOTE | 2024-06-21 11:42 | ECG_ITS ---
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 Measurements Intervals Adell Rate: 96 P: 67 ID: 140 QRS: 16 QRSD: 90 T: 34 QT: 334 QTc: 422 Interpretive Statements SINUS RHYTHM No previous ECG available for comparison Electronically Signed On 06-24-2024 00:09:58 CDT by Katrina Floyd M.D. [email or web address]
[2024-06-21 12:49] LABS: Troponin 5 2HR 56.12 ng/L (0-10)
[2024-06-21 12:55] LABS: Troponin 5 2HR Delta -9.88 ABS# (0-10)
--- NOTE | 2024-06-21 15:32 | P.PN_ITS ---
Subjective 2 Subjective: Patient is unchanged at this point no complaints called with the nurse the MRI scanner is going to be coming to get her at 4:30 PM today. In 1 hour. Vitals/I&O/Wt Last Vital Signs Temp 98.2 F 06/21/24 11:45 Pulse 92 06/21/24 11:45 Resp 17 06/21/24 11:45 BP 125/78 06/21/24 11:45 Pulse Ox 95 06/21/24 11:45 O2 Del Method Room Air 06/21/24 11:45 06/21/24 06/21/24 06/21/24 06:59 14:59 22:59 Intake Total 480 / 480 Output Total 900 / 950 Balance -900 / -300 480 / 480 Weight last 48 hrs Weight 192 lb 9 oz Weight 170 lb Weight 170 lb Physical Exam 2 Narrative: Unchanged Urinary Catheter Management: Heck: Cath Placed During This Visit: yes Urinary Catheter Date of Insertion: 06/20/24 Urinary Catheter Time of Insertion: 20:36 Data 06/20/24 13:12 06/20/24 13:12 A&P Assessment and plan (1) Lumbar stenosis with neurogenic claudication: Await results of MRI to determine treatment plan. Will check in with patient tomorrow. No operative surgeries will be planned this weekend. if it looks operative would plan to do surgery on Monday. Attestations 2 Medical Necessity Statement*: Per primary service Coding Level of Care Code Acute Code for [facility] Fwd Diagnoses Lumbar stenosis with neurogenic claudication M48.062
--- NOTE | 2024-06-21 17:15 | P.PN_ITS ---
Subjective 2 Subjective: - Patient was examined this morning -As I walked in the room, she is reading a book, using both hands, -Patient tells me that about 2 weeks ago , she noticed that she had a right upper extremity weakness, she does have right shoulder stiffness, when raising her arm above the head level, she notices that her right shoulder work will catch, so she feels weak because of that this is been going on for the last 2 weeks but she also notices weakness in the right hand the right arm -She also complains of right-sided neck pain, right sided shoulder pain, she thinks that they are related, pain with range of motion, she feels of the right shoulder?stiff, and locks up, she also has a right-sided neck pain pain with range of motion -On examination, she has weakness on rg sing her arms up to about 90 degrees, she does have mild to moderate weakness before this, but after 90 degrees her right shoulder starts catching on her she has significant pain and stiffness -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 Sbrb-so-ubgg is abnormal on the right She denies the right patella bothering her currently on examination no significant tenderness to palpation -She tells me that on Monday her right l ower extremity went out on her and she fell in the shower hitting her right patella -She tells me that since then she has be en weak in her right leg -She associated with her back pain with her fall her back is also been hurting her she has been feeling tightness in her lower back -He denies a history of a stroke in the past -We discussed her head CT had no acute f indings -Currently her biggest concern is her ri ght lower extremity weakness on examination her right foot has weakness to dorsal and plantarflexion which is more significant compared to last night, she can raise her right leg off the gurney but the strength is significantly reduced compared to the left, strength would be 3 out of 5 -She tells me that this is been happenin g since her fall on Monday, her strength has been fluctuating it is quite significant this morning -That she also tells me that for the las t 2 to 3 weeks she has been having episodes of word finding difficulty, no slurring of words, currently no word finding difficulty, were able to have lengthy discussions without her having trouble coming up with a right answer, no slurring of words, no facial droop, -no facial droop reported, no facial margie op on evaluation -She is reading her book she denies any visual deficits, no vision loss -She does report urinary continence but has a Heck catheter in place currently, 9 ? Denies any bowel incontinence, denies any perianal or saddle anesthesia, denies any lower extremity weakness -I discussed given her right sided weakn ess, complicated by her cervical disc disease, her lumbar stenosis, I think likely she has had a stroke sometime in the last 2 weeks -We discussed her episodic hypertension episodes as a possible etiology ? Although her head CT was within normal limits, did show old lacunar infarcts in the basal ganglia ? Given her current findings I would be highly suspicious that she has had a stroke in the last 2 to 3 weeks, but what complicating everything is her lower lumbar disc disease and her back pain complaints are lumbar stenosis and her cervical disc disease, and her right shoulder stiffness ? For now we will operate on the worst case scenario that she has had a stroke unfortunately she is out of the window for any treatment, or any interventions but nonetheless we will do an MRI of the brain, cardiac echo, carotid artery ultrasound started on aspirin, statin will have to monitor her blood pressures potentially add her blood pressure medications, PT OT ? Will also get a cervical spine MRI and a lumbar spine MRI ? A1c, lipid panel Vitals/I&O/Wt Last Vital Signs Temp 98.2 F 06/21/24 11:45 Pulse 92 06/21/24 11:45 Resp 17 06/21/24 11:45 BP 125/78 06/21/24 11:45 Pulse Ox 95 06/21/24 11:45 O2 Del Method Room Air 06/21/24 11:45 06/21/24 06/21/24 06/21/24 06:59 14:59 22:59 Intake Total 480 / 480 Output Total 900 / 950 Balance -900 / -300 480 / 480 Weight last 48 hrs Weight 87.345 kg Weight 77.111 kg Weight 77.111 kg Physical Exam 2 Const: COMMON NORMALS: no acute distress and patient oriented x3 HENMT: COMMON NORMALS: normocephalic HEAD & SCALP: normocephalic Neck/C-Spine: COMMON NORMALS: no JVD Resp: COMMON NORMALS: normal respiratory effort, No retractions, No use of accessory muscles and clear to auscultation bilaterally AUSCULTATION: clear to auscultation bilaterally Cardio: COMMON NORMALS: no JVD, regular rate, regular rhythm, S1 normal heart sound present and S2 normal heart sound present RATE: regular rate RHYTHM: regular rhythm HEART SOUNDS: S1 normal heart sound present and S2 normal heart sound present GI: COMMON NORMALS: Normal to inspection, nondistended, normoactive bowel sounds present and non-tender Extremity: COMMON NORMALS: no pedal edema Neuro: COMMON NORMALS: patient oriented x3, CN's II-XII intact bilaterally and moves all extremities Psych: COMMON NORMALS: mental status grossly normal Urinary Catheter Management: Heck: Cath Placed During This Visit: yes Urinary Catheter Date of Insertion: 06/20/24 Urinary Catheter Time of Insertion: 20:36 Data 06/20/24 13:12 06/20/24 13:12 A&P Assessment and plan (1) Lumbar stenosis with neurogenic claudication: (2) Cystitis: (3) Acute CVA (cerebrovascular accident): (4) Right sided weakness: (5) Neck pain: Plan Acute CVA -Concerns for acute CVA given her constellation of symptoms of right lower extremity weakness, right upper extremity weakness, complaints of word finding difficulty -Complicated by lumbar stenosis, cervical disc disease, right shoulder pain and stiffness -Symptom onset about 2 to 3 weeks for her right upper extremity, since about Monday for her right lower extremity -Out of tPA window -Had a stroke scale 5 -Head CT no acute bleed Plan -Head MRI -Out of the window for permissive hypertension start Norvasc 5 mg daily -Telemetry monitoring -Cardiac echo -Carotid ultrasound -Aspirin, statin -PT OT Neck pain -Right shoulder stiffness, right sided neck pain -CT FINDINGS: Bones: Generalized osseous demineralization. No acute fracture. Normal alignment. No significant disc bulge or herniation. No severe spinal canal stenosis. -MRI neck Right shoulder stiffness -PT OT ct lumbar spine CT/CT lumbar spine wo con* [id number] IMPRESSION: 1. No acute fractures. 2. Moderate central canal stenosis L3-4 and severe central canal stenosis L4-5 described above. 3. Moderate to severe L3-4 and severe bilateral L4-5 foraminal narrowing. 4. Grade 1 anterolisthesis L4 on L5 with advanced facet arthropathy. 5. Dense cholelithiasis. ? Plan ? Monitor as inpatient ? Morphine for pain control ? Monitor urine output, bladder scan ? Serial examinations ? MRI of the lumbar spine ordered ? Dr. Bell consulted ? Morphine for pain control ? PT OT ? Rocephin for UTI ? Lovenox for DVT prophylaxis, Is full code Attestations 2 Medical Necessity Statement*: Patient requires hospitalization, inpatient, greater than 2 minutes, for concerns for acute CVA, right-sided weakness, lumbar disc disease, neck pain, shoulder pain Diagnoses Lumbar stenosis with neurogenic claudication M48.062 Cystitis N30.90 Acute CVA (cerebrovascular accident) I63.9 Right sided weakness R53.1 Neck pain M54.2
--- NOTE | 2024-06-21 18:03 | MRR_ITS ---
PROCEDURE INFORMATION: Exam: MR Lumbar Spine Without Contrast Exam date and time: 06/21/2024 6:02 PM Age: 73 years old Clinical indication: Low back pain TECHNIQUE: Imaging protocol: Magnetic resonance imaging of the lumbar spine without contrast. COMPARISON: CT lumbar spine wo con* [id number] 06/18/2024 9:00 AM FINDINGS: Bones/joints: Dextroscoliosis of the lumbar spine. No fracture. 2 mm retrolisthesis of L1 on L2, 4 mm retrolisthesis of L2 on L3, and 8 mm anterolisthesis of L4 on L5. Spinal cord: Visualized cord, conus medullaris and cauda equina are unremarkable without compression. L1-L2: Broad-based disc bulge, mild ligamentum flavum thickening, bilateral facet arthropathy. Mild spinal stenosis. Moderate right and moderate to severe left neural foraminal narrowing. L2-L3: Disc bulge, ligamentum flavum thickening, bilateral facet arthropathy. Moderate spinal canal stenosis. Severe bilateral neural foraminal narrowing. L3-L4: Disc bulge, ligamentum flavum thickening, and bilateral facet arthropathy. Severe spinal canal stenosis and severe bilateral neural foraminal narrowing. L4-L5: Disc bulge, ligamentum flavum thickening, bilateral facet arthropathy. Severe spinal canal stenosis and severe bilateral neural foraminal narrowing. L5-S1: Disc bulge and bilateral facet arthropathy. Mild spinal canal stenosis. Severe bilateral neural foraminal narrowing, usnde-cdoosbv-mvdj-left. Soft tissues: Unremarkable. MR/MR lumbar spine wo con* [id number] IMPRESSION: 1. Advanced multilevel lumbar spondylosis as detailed above. 2. Severe spinal canal stenosis at L3-L4 and L4-L5 with areas of aszc-ss-cjczdqtd spinal stenosis at additional levels as detailed above. 3. Severe bilateral neural foraminal narrowing throughout the mid to lower lumbar spine. 4. Slight grade 1 retrolisthesis at L1-L2 and L2-L3. Grade 1 anterolisthesis at L4-L5.
[2024-06-21 18:16] LABS: Chol HDL Ratio 2.37 mg/dL (0.0-4.40); Cholesterol 206 mg/dL (0-200); HDL Cholesterol 87 mg/dL (60-100); LDL Cholesterol Calculated 99 mg/dL (50-129); LDL HDL Ratio 1.14 RATIO (0.00-3.22); Triglycerides 100 mg/dL (0-150)
[2024-06-21] MEDS: cefTRIAXone 1,000 mg SDV 1000 MG IVP (18:38)
[2024-06-21] MEDS: amlodipine 5 mg Tablet PO (18:38)
[2024-06-21] MEDS: enoxaparin 40 mg/0.4 mL Syringe SUBCUT (20:48)
[2024-06-21 20:52] LABS: Troponin 5 6HR 48.47 ng/L (0-10)
[2024-06-21 20:53] LABS: Troponin 5 6HR Delta -17.53 ng/L (0-12)
[2024-06-21 22:28] LABS: Estmated Average Glucose 103; Hemoglobin A1C 5.2 % (4.0-6.0)
[2024-06-22] VITALS (10 sets, daily range): BP systolic 121–151; BP diastolic 61–80; PULSE 70–90; RESP 14–19; TEMP 36.4–36.9; O2SAT 94–98
[2024-06-22 04:55] LABS: Basophils % 0.4 %; Eosinophils # 0.1 10^3/uL (0.0-0.8); Hematocrit 41.2 % (36-47); Lymphocytes # 2.3 10^3/uL (0.8-4.8); Lymphocytes % 31.7 %; Mean Corpuscular HGB Conc 32.8 g/dL (30-55); Mean Corpuscular Hemoglobin 30.5 pg (27-33); Mean Corpuscular Volume 93.2 fl (85-98); Mean Platelet Volume 8.6 fL (7.4-10.4); Monocytes # 0.7 10^3/uL (0.2-0.9); Monocytes % 10.3 %; Neutrophils # 4.03 10^3/uL (1.8-7.7); Neutrophils % 56.2 %; Nucleated Red Blood Cells % 0 %; Platelet Count 345 10^3/cmm (157-399); Red Blood Count 4.42 10^6/uL (3.85-5.65); Red Cell Distribution Width 13.2 % (12.1-15.1); White Blood Count 7.17 10^3/uL (3.29-11.43)
[2024-06-22 05:23] LABS: C Reactive Protein 23.7 mg/L (0.0-4.9)
[2024-06-22 09:28] LABS: Blood Urea Nitrogen 9 mg/dL (8-23); Calcium 8.9 mg/dL (8.5-10.5); Carbon Dioxide 26 mmol/L (22-29); Chloride 103 mmol/L (98-107); Creatinine Clr Calc Pharmacy 69.9372; Glucose 104 mg/dL (65-115); Osmolality Calculated 289 mOsm/kg (285-295); Sodium 140 mmol/L (136-145)
[2024-06-22] MEDS: aspirin 325 mg EC Tablet PO (09:41)
[2024-06-22] MEDS: pantoprazole DR 40 mg Tablet PO (09:41)
[2024-06-22] MEDS: amlodipine 5 mg Tablet PO (09:41)
[2024-06-22] MEDS: atorvastatin 40 mg Tablet PO (11:40)
--- NOTE | 2024-06-22 13:48 | P.PN_ITS ---
Subjective 2 Subjective: Discussed findings with the patient. She does have severe stenosis in her lumbar spine at L3-4 L4-5 which could explain her symptoms in her right lower extremity. And she does have significant stenosis in C5-6 C6-7 and her cervical spine. However patient did have a stroke. At this point will defer from doing any type of surgeries for at least 30 days wound we will reevaluate her in the clinic at this time. Vitals/I&O/Wt Last Vital Signs Temp 97.8 F 06/22/24 08:00 Pulse 87 06/22/24 12:00 Resp 15 06/22/24 12:00 BP 151/62 06/22/24 12:00 Pulse Ox 96 06/22/24 12:00 O2 Del Method Room Air 06/22/24 12:00 06/21/24 06/22/24 06/22/24 22:59 06:59 14:59 Intake Total 600 / 600 Output Total 1000 / 1000 400 / 1400 Balance -1000 / -520 -400 / -920 600 / 600 Weight last 48 hrs Weight 192 lb 1 oz Weight 192 lb 9 oz Weight 170 lb Physical Exam 2 Narrative: Unchanged from previous exams. MRI findings discussed with patient. Patient resting comfortably in bed Urinary Catheter Management: Heck: Cath Placed During This Visit: yes Urinary Catheter Date of Insertion: 06/20/24 Urinary Catheter Time of Insertion: 20:36 Data 06/22/24 04:30 06/22/24 04:30 A&P Assessment and plan (1) Lumbar stenosis with neurogenic claudication: Patient with significant findings on both cervical and lumbar MRI for stenosis. However patient is recently had a stroke. Will have her follow-up in the clinic in the next 30 days to evaluate her. Attestations 2 Medical Necessity Statement*: Per primary service Coding Level of Care Code Acute Code for [facility] Fwd Diagnoses Lumbar stenosis with neurogenic claudication M48.062
--- NOTE | 2024-06-22 15:13 | P.PN_ITS ---
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 office specialist strength of her right hand, does have right shoulder pain she has little decreased strength of her right upper extremity she tells me, she tells me that she is motivated to get better, she wants to walk again she wants to drive again I had a detailed discussion with her about her imaging findings -Her head MRI indeed does show that she has had a stroke she has a focal area of acute ischemia in the left frontal lobe involving the white matter/edge radiata, fortunate she is out of the window for any endovascular intervention or tPA, as her symptoms started for her right upper extremity about 2 weeks ago and her right lower extremity on Monday -But no goal is to continue aspirin, sta tin, aggressive physical therapy so that she can regain her functioning -Hopefully over time if she continues to do physical therapy the goal would be to try to regain her lost functionality, but only time and aggressive physical therapy will tell us but I advised her to stay positive, and keep working with physical therapy -Complicating things is that she does almazan ve advanced multilevel lumbar spondylosis, with severe spinal canal stenosis at L3/L4, L4/L5, this certainly could be playing a role into her right lower extremity weakness, especially with her complaints of low back pain, certainly she can consider surgical intervention for this however given that she has had an CVA she has a high risk of surgery and surgical complications ? In addition her MRI of her cervical spine does show multilevel cervical spondylosis at C5-c6, C6-C7 with mild spinal canal stenosis and moderate to severe bilateral neural foraminal narrowing -This certainly could be playing a role into her right upper extremity weakness, neck pain, she can certainly consider surgical intervention, however currently she is a high risk high risk of surgical complications -For now I have discussed with her and h er the goal would be to have her work aggressively physical with physical therapy, optimize her medical therapy work and getting her to a rehab facility and giving her at least 2 to 4 weeks to see how she clinically progresses from her stroke -Discussed risk and benefits of all opti ons, they voiced understanding, all question answered, shared decision making -Agreed to proceed with medical manageme nt for now, medical management for stroke for cervical disc disease, lumbar disc disease Vitals/I&O/Wt Last Vital Signs Temp 97.8 F 06/22/24 08:00 Pulse 87 06/22/24 12:00 Resp 15 06/22/24 12:00 BP 151/62 06/22/24 12:00 Pulse Ox 96 06/22/24 12:00 O2 Del Method Room Air 06/22/24 12:00 06/22/24 06/22/24 06/22/24 06:59 14:59 22:59 Intake Total 600 / 600 Output Total 400 / 1400 Balance -400 / -920 600 / 600 Weight last 48 hrs Weight 87.118 kg Weight 87.345 kg Weight 77.111 kg Physical Exam 2 Const: COMMON NORMALS: no acute distress and patient oriented x3 Resp: COMMON NORMALS: normal respiratory effort, No retractions, No use of accessory muscles and clear to auscultation bilaterally AUSCULTATION: clear to auscultation bilaterally Cardio: COMMON NORMALS: regular rate, regular rhythm, S1 normal heart sound present and S2 normal heart sound present RATE: regular rate RHYTHM: r egular rhythm HEART SOUNDS: S1 normal heart sound present and S2 normal heart sound present GI: COMMON NORMALS: Normal to inspection, nondistended, normoactive bowel sounds present Extremity: COMMON NORMALS: no pedal edema Neuro: COMMON NORMALS: patient oriented x3, CN's II-XII intact bilaterally and moves all extremities OTHER: Right upper extremity strength, above the 90 degree angle, she has right shoulder stiffness limiting range of motion, below 90 degrees, her right arm falls to the bed, she has good strength at the elbow is able to flex and extend, and rotate but is diminished to some degree, she has good front office specialist strength - Psych: COMMON NORMALS: mental status grossly normal Urinary Catheter Management: Heck: Cath Placed During This Visit: yes Urinary Catheter Date of Insertion: 06/20/24 Urinary Catheter Time of Insertion: 20:36 Data 06/22/24 04:30 06/22/24 04:30 A&P Assessment and plan (1) Lumbar stenosis with neurogenic claudication: (2) Cystitis: (3) Acute CVA (cerebrovascular accident): (4) Right sided weakness: (5) Neck pain: Plan Acute CVA -acute CVA given her constellation of symptoms of right lower extremity weakness, right upper extremity weakness, complaints of word finding difficulty -Complicated by lumbar stenosis, cervical disc disease, right shoulder pain and stiffness -Symptom onset about 2 to 3 weeks for her right upper extremity, since about [place] for her right lower extremity -Out of tPA window -Had a stroke scale 5 -Head CT no acute bleed head MRI MR/MR head wo con* [id number] IMPRESSION: 1. Focal area of acute ischemia in the left frontal lobe involving the white matter/edge radiata. 2. Moderate white matter changes compatible with chronic small vessel ischemic disease. Plan -Out of the window for permissive hypertension start Norvasc 5 mg daily -Telemetry monitoring -Cardiac echo CONCLUSIONS Normal left ventricular size and systolic function, EF 67%.no regional wall motion abnormalities. Trace to mild mitral valve regurgitation. Thickened aortic valve. Normal cardiac chamber sizes. No intracardiac masses There is no pericardial effusion. No similar previous studies are available for comparison -Carotid ultrasound CONCLUSIONS Right ICA stenosis <50%. Mild atheromatous plaque right carotid bulb/ICA. Left ICA stenosis <50%. Mild atheromatous plaque left carotid bulb/ICA. Intimal thickening in the common carotid arteries and internal carotid arteries bilaterally. Normal antegrade Doppler flow noted in the right vertebral artery. Normal antegrade Doppler flow noted in the left vertebral artery. -Aspirin, statin -PT OT -Telemetry monitoring -Monitor blood pressure closely Neck pain -Right shoulder stiffness, right sided neck pain -CT FINDINGS: Bones: Generalized osseous demineralization. No acute fracture. Normal alignment. No significant disc bulge or herniation. No severe spinal canal stenosis. -MRI neck MR/MR cervical spin wo con* [id number] IMPRESSION: 1. Multilevel cervical spondylosis most pronounced at C5-C6 and C6-C7 with mild spinal stenosis and moderate to severe bilateral neural foraminal narrowing as detailed above. 2. Slight grade 1 retrolisthesis at C5-C6. 3. Focal area in the C2 vertebral body could represent an intraosseous hemangioma. A follow-up MRI cervical spine without and with contrast could be considered in 3-6 months to document stability. Right shoulder stiffness -PT OT Low back pain, right lower extremity weakness ct lumbar spine CT/CT lumbar spine wo con* [id number] IMPRESSION: 1. No acute fractures. 2. Moderate central canal stenosis L3-4 and severe central canal stenosis L4-5 described above. 3. Moderate to severe L3-4 and severe bilateral L4-5 foraminal narrowing. 4. Grade 1 anterolisthesis L4 on L5 with advanced facet arthropathy. 5. Dense cholelithiasis. lumbar mri MR/MR lumbar spine wo con* [id number] IMPRESSION: 1. Advanced multilevel lumbar spondylosis as detailed above. 2. Severe spinal canal stenosis at L3-L4 and L4-L5 with areas of [id number] spinal stenosis at additional levels as detailed above. 3. Severe bilateral neural foraminal narrowing throughout the mid to lower lumbar spine. 4. Slight grade 1 retrolisthesis at L1-L2 and L2-L3. Grade 1 anterolisthesis at L4-L5. ? Plan ? Monitor as inpatient ? Morphine for pain control ? Serial examinations ? Dr. Bell consulted ? Morphine for pain control ? PT OT ? Rocephin for UTI ? Lovenox for DVT prophylaxis, -Is full code Attestations 2 Medical Necessity Statement*: Patient requires hospitalization, inpatient, greater than 2 midnights, for acute CVA, cervical spinal stenosis, lumbar spinal stenosis Diagnoses Lumbar stenosis with neurogenic claudication M48.062 Cystitis N30.90 Acute CVA (cerebrovascular accident) I63.9 Right sided weakness R53.1 Neck pain M54.2
[2024-06-22] MEDS: acetaminophen 325 mg Tablet 650 MG PO (15:15)
[2024-06-22] MEDS: cefTRIAXone 1,000 mg SDV 1000 MG IVP (17:45)
[2024-06-22] MEDS: enoxaparin 40 mg/0.4 mL Syringe SUBCUT (20:26)
[2024-06-23] VITALS (12 sets, daily range): BP systolic 127–162; BP diastolic 63–86; PULSE 67–84; RESP 16–19; TEMP 36.6–36.8; O2SAT 93–96
[2024-06-23 04:49] LABS: Basophils % 0.4 %; Eosinophils # 0.1 10^3/uL (0.0-0.8); Eosinophils % 1.6 %; Hematocrit 41.4 % (36-47); Lymphocytes # 2.1 10^3/uL (0.8-4.8); Lymphocytes % 27.2 %; Mean Corpuscular HGB Conc 32.4 g/dL (30-55); Mean Corpuscular Hemoglobin 29.7 pg (27-33); Mean Corpuscular Volume 91.8 fl (85-98); Mean Platelet Volume 8.7 fL (7.4-10.4); Monocytes # 0.7 10^3/uL (0.2-0.9); Monocytes % 8.5 %; Neutrophils # 4.73 10^3/uL (1.8-7.7); Neutrophils % 61.9 %; Nucleated Red Blood Cells % 0 %; Platelet Count 374 10^3/cmm (157-399); Red Blood Count 4.51 10^6/uL (3.85-5.65); Red Cell Distribution Width 13.3 % (12.1-15.1); White Blood Count 7.64 10^3/uL (3.29-11.43)
[2024-06-23 05:08] LABS: Alanine Aminotransferase 19 U/L (0-33); Albumin Level 3.7 g/dL (3.5-5.2); Alkaline Phosphatase 61 U/L (35-105); Anion Gap 13.9 (5-19); Aspartate Amino Transferase 20 U/L (0-32); Blood Urea Nitrogen 14 mg/dL (8-23); Calcium 8.8 mg/dL (8.5-10.5); Carbon Dioxide 26 mmol/L (22-29); Chloride 104 mmol/L (98-107); Globulin 2.6 g/dL (1.3-4.6); Glucose 113 mg/dL (65-115); Osmolality Calculated 291 mOsm/kg (285-295); Potassium 3.9 mmol/L (3.5-5.1); Sodium 140 mmol/L (136-145); Total Bilirubin 0.4 mg/dL (0.15-1.2); Total Protein 6.3 g/dL (6.6-8.7)
[2024-06-23 05:09] LABS: C Reactive Protein 16.9 mg/L (0.0-4.9)
[2024-06-23 05:18] LABS: Creatinine Clr Calc Pharmacy 67.0637
[2024-06-23] MEDS: pantoprazole DR 40 mg Tablet PO (08:04)
[2024-06-23] MEDS: aspirin 325 mg EC Tablet PO (08:04)
[2024-06-23] MEDS: amlodipine 5 mg Tablet PO (08:05)
[2024-06-23] MEDS: atorvastatin 40 mg Tablet PO (11:55)
[2024-06-23] MEDS: polyethylene glycol 3350 Pkt 17 gm PO (14:11)
--- NOTE | 2024-06-23 15:44 | P.PN_ITS ---
Subjective 2 Subjective: Patient was seen this morning, she tells me that she has improved movement of the right upper and right lower extremity she is very motivated, she tells me, no headache, blurry vision, no nausea, vomiting, Vitals/I&O/Wt Last Vital Signs Temp 98.0 F 06/23/24 11:57 Pulse 71 06/23/24 11:57 Resp 17 06/23/24 11:57 BP 127/80 06/23/24 11:57 Pulse Ox 96 06/23/24 11:57 O2 Del Method Room Air 06/23/24 11:57 06/23/24 06/23/24 06/23/24 06:59 14:59 22:59 Intake Total 720 / 720 Output Total 300 / 650 Balance -300 / 70 720 / 720 Weight last 48 hrs Weight 79.742 kg Weight 87.118 kg Physical Exam 2 Const: COMMON NORMALS: no acute distress and patient oriented x3 Resp: COMMON NORMALS: normal respiratory effort, No retractions, No use of accessory muscles and clear to auscultation bilaterally AUSCULTATION: clear to auscultation bilaterally Cardio: COMMON NORMALS: regular rate, regular rhythm, S1 normal heart sound present and S2 normal heart sound present RATE: regular rate RHYTHM: r egular rhythm HEART SOUNDS: S1 normal heart sound present and S2 normal heart sound present GI: COMMON NORMALS: Normal to inspection, nondistended, normoactive bowel sounds present and non-tender Extremity: COMMON NORMALS: no pedal edema Neuro: COMMON NORMALS: patient oriented x3 OTHER: - Right upper extremity strength, limite d by decreased range of motion above the 90 degree arc due to shoulder stiffness -They can do right [id number] -Right upper extremity strength 3 out of 5, to 5/5 on the left -Right lower extremity strength 3 out of 5, to 5 out of 5 the left, she has a strength do dorsal plantarflexion, eversion, inversion Psych: COMMON NORMALS: mental status grossly normal Urinary Catheter Management: Heck: Cath Placed During This Visit: yes Urinary Catheter Date of Insertion: 06/20/24 Urinary Catheter Time of Insertion: 20:36 Data 06/23/24 04:22 06/23/24 04:22 A&P Assessment and plan (1) Lumbar stenosis with neurogenic claudication: (2) Cystitis: (3) Acute CVA (cerebrovascular accident): (4) Right sided weakness: (5) Neck pain: Plan Acute CVA -acute CVA given her constellation of symptoms of right lower extremity weakness, right upper extremity weakness, complaints of word finding difficulty -Complicated by lumbar stenosis, cervical disc disease, right shoulder pain and stiffness -Symptom onset about 2 to 3 weeks for her right upper extremity, since about [place] for her right lower extremity -Out of tPA window -Had a stroke scale 5 -Head CT no acute bleed head MRI MR/MR head wo con* [id number] IMPRESSION: 1. Focal area of acute ischemia in the left frontal lobe involving the white matter/edge radiata. 2. Moderate white matter changes compatible with chronic small vessel ischemic disease. Plan -Out of the window for permissive hypertension start Norvasc 5 mg daily -Telemetry monitoring -Cardiac echo CONCLUSIONS Normal left ventricular size and systolic function, EF 67%.no regional wall motion abnormalities. Trace to mild mitral valve regurgitation. Thickened aortic valve. Normal cardiac chamber sizes. No intracardiac masses There is no pericardial effusion. No similar previous studies are available for comparison -Carotid ultrasound CONCLUSIONS Right ICA stenosis <50%. Mild atheromatous plaque right carotid bulb/ICA. Left ICA stenosis <50%. Mild atheromatous plaque left carotid bulb/ICA. Intimal thickening in the common carotid arteries and internal carotid arteries bilaterally. Normal antegrade Doppler flow noted in the right vertebral artery. Normal antegrade Doppler flow noted in the left vertebral artery. -Aspirin, statin, will add Plavix tomorrow -PT OT -Telemetry monitoring -Monitor blood pressure closely Hypertension ? Norvasc 5 mg added and increased to 10 mg Neck pain -Right shoulder stiffness, right sided neck pain -CT FINDINGS: Bones: Generalized osseous demineralization. No acute fracture. Normal alignment. No significant disc bulge or herniation. No severe spinal canal stenosis. -MRI neck MR/MR cervical spin wo con* [id number] IMPRESSION: 1. Multilevel cervical spondylosis most pronounced at C5-C6 and C6-C7 with mild spinal stenosis and moderate to severe bilateral neural foraminal narrowing as detailed above. 2. Slight grade 1 retrolisthesis at C5-C6. 3. Focal area in the C2 vertebral body could represent an intraosseous hemangioma. A follow-up MRI cervical spine without and with contrast could be considered in 3-6 months to document stability. Right shoulder stiffness -PT OT Low back pain, right lower extremity weakness ct lumbar spine CT/CT lumbar spine wo con* [id number] IMPRESSION: 1. No acute fractures. 2. Moderate central canal stenosis L3-4 and severe central canal stenosis L4-5 described above. 3. Moderate to severe L3-4 and severe bilateral L4-5 foraminal narrowing. 4. Grade 1 anterolisthesis L4 on L5 with advanced facet arthropathy. 5. Dense cholelithiasis. lumbar mri MR/MR lumbar spine wo con* [id number] IMPRESSION: 1. Advanced multilevel lumbar spondylosis as detailed above. 2. Severe spinal canal stenosis at L3-L4 and L4-L5 with areas of [id number] spinal stenosis at additional levels as detailed above. 3. Severe bilateral neural foraminal narrowing throughout the mid to lower lumbar spine. 4. Slight grade 1 retrolisthesis at L1-L2 and L2-L3. Grade 1 anterolisthesis at L4-L5. ? Plan ? Monitor as inpatient ? Morphine for pain control ? Serial examinations ? Dr. Bell consulted ? Morphine for pain control ? PT OT ? Rocephin for UTI ? Lovenox for DVT prophylaxis, -Is full code Plan for today PT OT, speech therapy eval, Rocephin, increased dose of Norvasc Attestations 2 Medical Necessity Statement*: Patient requires hospitalization for UTI, acute CVA, right-sided weakness Diagnoses Lumbar stenosis with neurogenic claudication M48.062 Cystitis N30.90 Acute CVA (cerebrovascular accident) I63.9 Right sided weakness R53.1 Neck pain M54.2
[2024-06-23 16:55] LABS: Glucose Point of Care 106 mg/dL (70-110)
[2024-06-23] MEDS: cefTRIAXone 1,000 mg SDV 1000 MG IVP (18:15)
[2024-06-23] MEDS: enoxaparin 40 mg/0.4 mL Syringe SUBCUT (20:32)
[2024-06-23] MEDS: hyDROXYzine 25 mg Capsule PO (23:51)
[2024-06-24 04:00] VITALS: BP 154/77; PULSE 73; RESP 17; TEMP 36.5; O2SAT 95
[2024-06-24 06:43] VITALS: PULSE 61
[2024-06-24 08:00] VITALS: BP 154/89; PULSE 70; RESP 18; TEMP 36.4; O2SAT 97
[2024-06-24] MEDS: pantoprazole DR 40 mg Tablet PO (08:46)
[2024-06-24] MEDS: clopidogrel 75 mg Tablet PO (08:46)
[2024-06-24] MEDS: aspirin 81 mg EC Tablet PO (08:47)
[2024-06-24] MEDS: amlodipine 10 mg Tablet PO (08:47)
[2024-06-24] MEDS: polyethylene glycol 3350 Pkt 17 gm PO (10:40)
[2024-06-24] MEDS: atorvastatin 40 mg Tablet PO (10:40)
[2024-06-24 11:40] VITALS: BP 146/77; PULSE 75; RESP 18; TEMP 36.7; O2SAT 96
--- NOTE | 2024-06-24 11:53 | P.DS_ITS ---
Discharge Providers Date of Admission: 06/21/24 17:15 Date of Discharge: June 24, 2024 Attending Provider at Admission: Santo Cabral MD Attending Provider at Discharge: Santo Cabral MD Primary Care Provider: MERA Headley Diagnoses at Discharge Discharge Diagnosis (1) Lumbar stenosis with neurogenic claudication: Status: Acute (2) Cystitis: Status: Acute (3) Acute CVA (cerebrovascular accident): Status: Acute (4) Right sided weakness: Status: Acute (5) Neck pain: Status: Acute Reason for Visit Reason for Visit: right sided weakness Hospital Course Hospital Course Lupe Harrison is a 73 year old female with a past medical history of 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 Rocha took care of her she had a disc herniation in her lower back and she was admitted she was put on a morphine drip in the morning she was well enough to go home and it never really bothered her since then she denies any trauma she did have a fall on Monday, but no other significant trauma no car accidents. 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 Denies any significant heavy lifting,. 06/16/2024 she had a fall, had right knee pain her right knee did not really bother her, but she did feel unsteady on her feet, she tells me that since her fall, she has had difficulty ambulating difficulty bearing weight, her knee is really not the cause her pain is primarily in the lower back, with right leg weakness she had does have an appointment with Dr. Bell in a week, she does have a small avulsion fracture that is nondisplaced on the right patella, she is in a knee immobilizer for this and is partial weightbearing with a walker however she continued to have pain, she is complaining of urinary incontinence, has constipation , no saddle or perineal anesthesia, the pain is primarily in the lower back, but does not radiate down both lower extremities, no nausea, no vomiting, no fevers, no chills, she is seen by Dr. Bell in the emergency room, she has had a CT of her neck spine as she was complaining of pain moving both arms however during my discussion with her she is moving both upper extremities without any difficulty, no loss of strength no paresthesias reported she denies a history of strokes she tells me that she is here because she she has back pain and right leg weakness, although on examination she has good strength in bilateral lower extremities, no paresthesias reported, also reported incontinence, she is alert oriented x 3, following all commands no facial droop, no slurring her words, Patient was admitted to [facility] for : Acute CVA -acute CVA given her constellation of symptoms of right lower extremity weakness, right upper extremity weakness, complaints of word finding difficulty at times -Complicated by lumbar stenosis, cervical disc disease, right shoulder pain and stiffness -Symptom onset about 2 to 3 weeks for her right upper extremity, since about Monday for her right lower extremity -She reports chronic right lower extremity weakness/stiffness/pain/limited range of motion due to her history of hip dysplasia, hip dysplasia surgery, she tells me that whenever she ambulates specifically when climbing her stairs, she has to swing her leg outwards to climb the stairs -Out of tPA window -Had a stroke scale 5 -Head CT no acute bleed head MRI MR/MR head wo con* [id number] IMPRESSION: 1. Focal area of acute ischemia in the left frontal lobe involving the white matter/edge radiata. 2. Moderate white matter changes compatible with chronic small vessel ischemic disease. Plan -Out of the window for permissive hypertension start Norvasc 5 mg daily -Telemetry monitoring -Cardiac echo CONCLUSIONS Normal left ventricular size and systolic function, EF 67%.no regional wall motion abnormalities. Trace to mild mitral valve regurgitation. Thickened aortic valve. Normal cardiac chamber sizes. No intracardiac masses There is no pericardial effusion. No similar previous studies are available for comparison -Carotid ultrasound CONCLUSIONS Right ICA stenosis <50%. Mild atheromatous plaque right carotid bulb/ICA. Left ICA stenosis <50%. Mild atheromatous plaque left carotid bulb/ICA. Intimal thickening in the common carotid arteries and internal carotid arteries bilaterally. Normal antegrade Doppler flow noted in the right vertebral artery. Normal antegrade Doppler flow noted in the left vertebral artery. -She was monitored as inpatient received PT OT, speech therapy eval -No significant word finding difficulty -Right upper extremity weakness has significantly improved, but her range of motion right upper extremity is limited by right shoulder -Her right lower extremity strength has significantly improved, -She will be discharged to skilled rehab -Discharged on aspirin 81 mg daily, statin 40 mg daily -Plavix 75 mg daily for 21 days then stop ? Follow-up with neurology as outpatient -If any recurrent strokelike symptoms to please go to emergency room -Discharged with event monitor in place -Follow-up with cardiology For her hypertension, discharged on Norvasc 10 mg daily Neck pain -Right shoulder stiffness, right sided neck pain, right upper extremity weakness -She reports chronic right shoulder stiffness/limited range of motion above 90 degree arc -CT FINDINGS: Bones: Generalized osseous demineralization. No acute fracture. Normal alignment. No significant disc bulge or herniation. No severe spinal canal stenosis. -MRI neck MR/MR cervical spin wo con* [id number] IMPRESSION: 1. Multilevel cervical spondylosis most pronounced at C5-C6 and C6-C7 with mild spinal stenosis and moderate to severe bilateral neural foraminal narrowing as detailed above. 2. Slight grade 1 retrolisthesis at C5-C6. 3. Focal area in the C2 vertebral body could represent an intraosseous hemangioma. A follow-up MRI cervical spine without and with contrast could be considered in 3-6 months to document stability. Right shoulder stiffness, suspect adhesive capsulitis right shoulder osteoarthritis follow-up with orthopedics as outpatient -PT OT as inpatient -Discharged with oxycodone to be used sparingly for pain -With close follow-up with Dr. Bell as outpatient for consideration of intervention for her cervical disc disease Low back pain, right lower extremity weakness ct lumbar spine CT/CT lumbar spine wo con* [id number] IMPRESSION: 1. No acute fractures. 2. Moderate central canal stenosis L3-4 and severe central canal stenosis L4-5 described above. 3. Moderate to severe L3-4 and severe bilateral L4-5 foraminal narrowing. 4. Grade 1 anterolisthesis L4 on L5 with advanced facet arthropathy. 5. Dense cholelithiasis. lumbar mri MR/MR lumbar spine wo con* [id number] IMPRESSION: 1. Advanced multilevel lumbar spondylosis as detailed above. 2. Severe spinal canal stenosis at L3-L4 and L4-L5 with areas of [id number] spinal stenosis at additional levels as detailed above. 3. Severe bilateral neural foraminal narrowing throughout the mid to lower lumbar spine. 4. Slight grade 1 retrolisthesis at L1-L2 and L2-L3. Grade 1 anterolisthesis at L4-L5. -Received PT OT as inpatient -Is motivated to eventually have back surgery -Discharged with oxycodone to be used sparingly for pain -Follow-up with Dr. Bell as outpatient for consideration of surgical inter vention Did have concern for UTI during the hospitalization, complete antibiotics as outpatient Physical Exam Const: COMMON NORMALS: no acute distress and patient oriented x3 Resp: COMMON NORMALS: normal respiratory effort, No retractions, No use of accessory muscles and clear to auscultation bilaterally AUSCULTATION: clear to auscultation bilaterally Cardio: COMMON NORMALS: regular rate, regular rhythm, S1 normal heart sound present and S2 normal heart sound present RATE: regular rate RHYTHM: regu lar rhythm HEART SOUNDS: S1 normal heart sound present and S2 normal heart sound present GI: COMMON NORMALS: Normal to inspection, nondistended, normoactive bowel sounds present and non-tender Extremity: COMMON NORMALS: no pedal edema NARRATIVE EXTREMITY EXAM: Right upper extremity strength improving Right lower extremity strength improving Neuro: COMMON NORMALS: patient oriented x3 Psych: COMMON NORMALS: mental status grossly normal Urinary Catheter Management: Heck: Cath Placed During This Visit: yes, but has since been removed by the nurse Reason for Continuing Indwelling Catheter: Decision to DC Catheter Urinary Catheter Date of Insertion: 06/20/24 Urinary Catheter Time of Insertion: 20:36 Date Urinary Catheter Removed: 06/24/24 Time Urinary Catheter Discontinued: 10:45 Discharge Data Studies Completed and Pending Completed Studies During Hospitalization Category Date Time Status CT cervical spin wo con* [id number] Stat Cat Scan 06/20/24 15:[address] head wo con* [id number] Stat Cat Scan 06/20/24 18:10 Completed MR cervical spin wo con* [id number] Routine MRI 06/21/24 10:32 Completed MR head wo con* [id number] Routine MRI 06/21/24 10:32 Completed MR lumbar spine wo con* [id number] Routine MRI 06/21/24 18:03 Completed CV carotid duplex BI* [id number] Routine Ultrasound 06/21/24 10:32 Completed CV. echo complete* [id number] Routine Ultrasound 06/21/24 10:32 Completed Radiology Impressions Cervical Spine CT 06/20/24 15:30 IMPRESSION: No acute findings. Head CT 06/20/24 18:10 IMPRESSION: No acute intracranial abnormality. Cervical Spine MRI 06/21/24 10:32 IMPRESSION: 1. Multilevel cervical spondylosis most pronounced at C5-C6 and C6-C7 with mild spinal stenosis and moderate to severe bilateral neural foraminal narrowing as detailed above. 2. Slight grade 1 retrolisthesis at C5-C6. 3. Focal area in the C2 vertebral body could represent an intraosseous hemangioma. A follow-up MRI cervical spine without and with contrast could be considered in 3-6 months to document stability. Head MRI 06/21/24 10:32 IMPRESSION: 1. Focal area of acute ischemia in the left frontal lobe involving the white matter/edge radiata. 2. Moderate white matter changes compatible with chronic small vessel ischemic disease. ADDENDUM: 06/21/24 1834 THIS REPORT CONTAINS FINDINGS THAT MAY BE CRITICAL TO PATIENT CARE. The findings were verbally communicated via telephone conference with SANTO MCGREGOR at 6:32 PM CDT on 06/21/2024. The findings were acknowledged and understood. Lumbar Spine MRI 06/21/24 18:03 IMPRESSION: 1. Advanced multilevel lumbar spondylosis as detailed above. 2. Severe spinal canal stenosis at L3-L4 and L4-L5 with areas of [id number] spinal stenosis at additional levels as detailed above. 3. Severe bilateral neural foraminal narrowing throughout the mid to lower lumbar spine. 4. Slight grade 1 retrolisthesis at L1-L2 and L2-L3. Grade 1 anterolisthesis at L4-L5. Laboratory Results WBC 7.64 10^3/uL (3.29-11.43) 06/23/24 04:22 RBC 4.51 10^6/uL (3.85-5.65) 06/23/24 04:22 Hgb 13.40 g/dL (11.27-16.99) 06/23/24 04:22 Hct 41.4 % (36-47) 06/23/24 04:22 MCV 91.8 fl (85-98) 06/23/24 04:22 MCH 29.7 pg (27-33) 06/23/24 04:22 MCHC 32.4 g/dL (30-55) 06/23/24 04:22 RDW 13.3 % (12.1-15.1) 06/23/24 04:22 Plt Count 374 10^3/cmm (157-399) 06/23/24 04:22 MPV 8.7 fL (7.4-10.4) 06/23/24 04:22 Neut % (Auto) 61.9 % 06/23/24 04:22 Lymph % (Auto) 27.2 % 06/23/24 04:22 Evangeline % (Auto) 8.5 % 06/23/24 04:22 Eos % (Auto) 1.6 % 06/23/24 04:22 Baso % (Auto) 0.4 % 06/23/24 04:22 Neut # (Auto) 4.73 10^3/uL (1.8-7.7) 06/23/24 04:22 Lymph # (Auto) 2.1 10^3/uL (0.8-4.8) 06/23/24 04:22 Evangeline # (Auto) 0.7 10^3/uL (0.2-0.9) 06/23/24 04:22 Eos # (Auto) 0.1 10^3/uL (0.0-0.8) 06/23/24 04:22 Baso # (Auto) 0.0 10^3/uL (0.0-0.1) 06/23/24 04:22 Nucleated RBC % (auto) 0 % 06/23/24 04:22 Nucleated RBCs # 0.0 /100WBC 06/23/24 04:22 ESR 45 mm/hr (0-15) H 06/20/24 13:12 Sodium 140 mmol/L (136-145) 06/23/24 04:22 Potassium 3.9 mmol/L (3.5-5.1) 06/23/24 04:22 Chloride 104 mmol/L (98-107) 06/23/24 04:22 Carbon Dioxide 26 mmol/L (22-29) 06/23/24 04:22 Anion Gap 13.9 (5-19) 06/23/24 04:22 BUN 14 mg/dL (8-23) 06/23/24 04:22 Creatinine 0.4 mg/dL (0.5-0.9) L 06/23/24 04:22 GFR Calculation Not Reportable 06/23/24 04:22 Glucose 113 mg/dL (65-115) 06/23/24 04:22 POC Glucose 106 mg/dL (70-110) 06/23/24 16:43 Estimat Average Glucose 103 06/21/24 10:48 Hemoglobin A1c 5.2 % (4.0-6.0) 06/21/24 10:48 Calculated Osmolality 291 mOsm/kg (285-295) 06/23/24 04:22 Calcium 8.8 mg/dL (8.5-10.5) 06/23/24 04:22 Total Bilirubin 0.4 mg/dL (0.15-1.2) 06/23/24 04:22 AST 20 U/L (0-32) 06/23/24 04:22 ALT 19 U/L (0-33) 06/23/24 04:22 Alkaline Phosphatase 61 U/L (35-105) 06/23/24 04:22 Troponin T Baseline 66 ng/L (0-10) H 06/21/24 10:48 Troponin T 120 Minute 56.12 ng/L (0-10) H 06/21/24 12:20 Delta Troponin T -9.88 ABS# (0-10) L 06/21/24 12:20 Troponin T Hi Sens 6Hr 48.47 ng/L (0-10) H 06/21/24 19:53 Troponin T Hi Sens 6Hr Delta -17.53 ng/L (0-12) L 06/21/24 19:53 C-Reactive Protein 16.9 mg/L (0.0-4.9) H 06/23/24 04:22 Total Protein 6.3 g/dL (6.6-8.7) L 06/23/24 04:22 Albumin 3.7 g/dL (3.5-5.2) 06/23/24 04:22 Globulin 2.6 g/dL (1.3-4.6) 06/23/24 04:22 Triglycerides 100 mg/dL (0-150) 06/21/24 12:20 Cholesterol 206 mg/dL (0-200) H 06/21/24 12:20 LDL Cholesterol, Calc 99 mg/dL (50-129) 06/21/24 12:20 HDL Cholesterol 87 mg/dL (60-100) 06/21/24 12:20 LDL/HDL Ratio 1.14 RATIO (0.00-3.22) 06/21/24 12:20 Cholesterol/HDL Ratio 2.37 mg/dL (0.0-4.40) 06/21/24 12:20 Procalcitonin 0.10 ng/mL (0-0.5) 06/20/24 13:12 TSH 3.08 uIU/mL (0.27-4.20) 06/20/24 13:12 Urine Color Yellow (Yellow) 06/20/24: Urine Appearance Clear (CLEAR) 06/20/24 20: Urine pH 6.0 (5-7) 06/20/24 20:32 Ur Specific Darby 1.008 (1.005-1.030) 06/20/24 20: Urine Protein Negative (Negative) 06/20/24 20: Urine Glucose (UA) Negative (Normal) 06/20/24 20:32 Urine Ketones 1+ (Negative) H 06/20/24 20: Urine Blood 2+ (Negative) A 06/20/24: Urine Nitrate Negative (Negative) 06/20/24: Urine Bilirubin Negative (Negative) 06/20/24 20:32 Urine Urobilinogen 0.2 mg/dL (Negative) 06/20/24 20:32 Ur Leukocyte Esterase Negative (Negative) 06/20/24 20: Urine RBC 6-10 /hpf (0-2) 06/20/24 20:32 Urine WBC 0-5 /hpf (0-5) 06/20/24 20:32 Ur Squamous Epith Cells 0-5 /hpf (0-5) 06/20/24 20:32 Amorphous Sediment Not Reportable 06/20/24 20:32 Urine Bacteria None seen /hpf (NONE) 06/20/24 20:32 Hyaline Casts 0.81 /lpf 06/20/24 20:32 Vitals Last Vital Signs Temp 98.0 F 06/24/24 11:40 Pulse 75 06/24/24 11:40 Resp 18 06/24/24 11:40 BP 146/77 06/24/24 11:40 Pulse Ox 96 06/24/24 11:40 O2 Del Method Room Air 06/24/24 11:40 Discharge Plan Discharge Patient Disposition: Xfer Intermediate Care Fac Condition: Stable Prescriptions: New atorvastatin 40 mg Tablet 40 mg PO Q24H 30 Days Qty: 30 0RF clopidogrel 75 mg Tablet 75 mg PO DAILY 21 Days Qty: 21 0RF aspirin 81 mg Tablet,Delayed Release (Dr/Ec) 81 mg PO DAILY 30 Days Qty: 30 0RF amlodipine 10 mg Tablet 10 mg PO DAILY 30 Days Qty: 30 0RF oxycodone 5 mg Tablet 5 mg PO Q8H PRN (Reason: Moderate Pain) 5 Days Qty: 15 0RF polyethylene glycol 3350 [Miralax] 17 gram powder in packet 17 g PO DAILY PRN (Reason: constipation) 30 Days Qty: 30 0RF docusate sodium [Colace] 100 mg capsule 100 mg PO BID 30 Days Qty: 60 0RF Discontinued polymyxin B sulf-trimethoprim 10,000 unit- 1 mg/mL drops 1 drp ophthalmic (eye) Q6H cefdinir 300 mg capsule 300 mg PO BID Qty: 14 0RF hydrocodone-acetaminophen 5-325 mg tablet 1 tab PO Q6H PRN (Reason: pain) Qty: 20 0RF Discharge Orders: Discharge Order (Routine); Ordered 06/24/24 Ordered By: Santo Cabral Other Ambulatory Orders: MCT/Event Monitor 30 Days (Routine) Timeframe: 1 Day Facility: [facility] - Location: Radiology Ordered By: Santo Cabral Referrals: [facility] [Other] Carmen Rocha MD [Physician] - 1 week Jamari Bell DO [Physician] - 2 weeks Anton Galdamez MD [Physician] - 1 month (event monitor) Caprice Monreal FNP-C [Primary Care Provider] - Discharge Diet: Cardiac Discharge Activity: Resume usual activity Patient Instructions: Lumbar Spinal Stenosis (DC), Self Care Measures After a Stroke (DC), Patellar Fracture (DC), Stroke (DC), Opioid Safety, Stroke Stoplight Activity Restrictions/Additional Instructions: Follow-up in orthospine clinic in 30 days. -For your acute CVA continue aspirin 81 mg daily -Atorvastatin 40 mg daily -Plavix 75 mg daily, please stop after 21 days -If any recurrent strokelike symptoms please call 911 -Please have patient follow-up with neurology -Continue PT OT at rehab facility -Patient has a right patellar fracture, as per PT OT have patient follow-up with orthopedic service as outpatient -For lumbar stenosis please follow-up with orthopedic service as outpatient -For cervical stenosis please follow-up with orthopedic service as outpatient -Monitor blood pressure closely discharge on Norvasc 10 mg daily -Discharged with event monitor in place -Follow-up with cardiology as outpatient Discharge Attestations Time Spent in Discharge Care*: greater than 30 min Quality Metrics Clinical Quality Measures [ Cerebrovascular Accident { Contraindication to Antithrombotic: None; antithrombotic prescribed; Contraindication to Anticoagulation: Overlap treatment not indicated; Contraindication to Statin: None; Statin prescribed;}] Coding Level of Care Code 44271 Total time (in minutes) for Discharge: 45 Diagnoses Lumbar stenosis with neurogenic claudication M48.062 Cystitis N30.90 Acute CVA (cerebrovascular accident) I63.9 Right sided weakness R53.1 Neck pain M54.2
--- NOTE | 2024-06-24 11:56 | PC.SOCIAL ---
IMM Update pg 2 of IMM Updated and reviewed w/ patient. Copy provided and copy dated, initialed and placed in chart.
--- NOTE | 2024-06-24 13:57 | PC.OT ---
OT TREATMENT HELD DUE TO SCHEDULED PATIENT D/C TODAY
[2024-06-24 16:00] VITALS: BP 147/73; PULSE 87; RESP 18; TEMP 36.8; O2SAT 98
[2024-06-24 17:36] VITALS: BP 147/73; PULSE 87; RESP 18; TEMP 36.8; O2SAT 98
== END 2024-06-24 17:40 | DRG 65 ==
LOC: ER 18:12 → MEDSURG 18:44
PROVIDERS: Admitting Provider Family Medicine; Emergency Provider Family Medicine; PCP Nurse Practitioner; Visit Provider Family Medicine
DX: I63.9 Cerebral infarction, unspecified (principal); G81.91 Hemiplegia, unspecified affecting right dominant side; S82.001A Unspecified fracture of right patella, initial encounter for closed fracture; N30.90 Cystitis, unspecified without hematuria; R32 Unspecified urinary incontinence; M48.062 Spinal stenosis, lumbar region with neurogenic claudication; M54.16 Radiculopathy, lumbar region; M50.30 Other cervical disc degeneration, unspecified cervical region; W18.30XA Fall on same level, unspecified, initial encounter
CPT/HCPCS: 36415; 36416; 51702; 51798; 70450; 70551; 72125; 72141; 72148; 80048; 80053; 80061; 81001; 82962; 83036; 84145; 84443; 84484; 85025; 85651; 86140; 93005; 93306; 93880; 94664; 96372; 96374; 97110; 97116; 97162; 97166; 97530; 97535; 97760; 99285; G0378; J0696; J1650

== ENCOUNTER → 2024-07-18 16:05 | Outpatient (BNVA) | payer MEDICARE, SELFPAY | PROVIDERS: PCP Nurse Practitioner; Visit Provider Orthopaedic Surgery | DX: M54.2 Cervicalgia (principal); M48.062 Spinal stenosis, lumbar region with neurogenic claudication; M54.16 Radiculopathy, lumbar region; M25.561 Pain in right knee | CPT/HCPCS: 73560; 99214 ==

== ENCOUNTER → 2024-09-24 13:07 | Outpatient (BNVA) | payer MEDICARE, SELFPAY | PROVIDERS: PCP Nurse Practitioner; Visit Provider Student in an Organized Health Care Education/Training Program | DX: M54.16 Radiculopathy, lumbar region; M65.331 Trigger finger, right middle finger; M54.9 Dorsalgia, unspecified; R20.0 Anesthesia of skin; M79.641 Pain in right hand | CPT/HCPCS: 72100; 73130 ==

== ENCOUNTER 2024-09-24 14:01 | Outpatient (CLI) | payer MEDICARE, SELFPAY | END 2024-09-24 14:02 | disposition home or self-care (01) | LOC: SPT 14:01 | PROVIDERS: PCP Nurse Practitioner; Visit Provider Student in an Organized Health Care Education/Training Program | DX: Z46.89 Encounter for fitting and adjustment of other specified devices (principal); G56.01 Carpal tunnel syndrome, right upper limb | CPT/HCPCS: 99213; L3908 ==